=== PATIENT | male | born 1970 | race Caucasian/White ===

== ENCOUNTER 2023-03-02 07:23 | Inpatient (IN) | payer SELFPAY ==
[2023-03-02] VITALS (14 sets, daily range): BP systolic 95–141; BP diastolic 59–97; PULSE 68–85; RESP 16–19; TEMP 36.3–37.4; O2SAT 94–97; BMI 23.9; BMI 24.6
--- NOTE | 2023-03-02 08:05 | CT_ITS ---
STUDY: CT ABDOMEN AND PELVIS WITH CONTRAST REASON FOR EXAM: Male, 52 years old. 3 day history of nausea and vomiting. RADIATION DOSAGE (If Supplied By Facility): CTDIvol = ( 12.55 ) mGy, DLP = ( 633.92 ) mGycm TECHNIQUE: Transaxial images were obtained from the dome of the diaphragm to the symphysis pubis without oral contrast. IV 100mL Isovue-300 was administered. Sagittal and coronal images were reconstructed. Individualized dose optimization techniques were used for this CT. COMPARISON: None. FINDINGS: Mild degree of emphysematous changes at the lung bases. The visualized portions of the heart are within normal limits. Mild degree of fatty infiltration of the liver. Small amount of the perihepatic fluid. Normal gallbladder and extrahepatic biliary system. Normal spleen. Normal pancreas. Normal bilateral adrenal glands. Normal right kidney. Normal left kidney. There is fluid distention of the stomach. Marked degree of abnormality is seen in the distal portion of the stomach and first portion of the duodenum with evidence of heterogeneous wall thickening and edematous changes of the wall. Tiny extraluminal air bubbles are seen in the gastroepiploic ligament as well as in the fat in the prepancreatic region. Mildly dilated proximal small bowel loops with evidence of a edematous changes of the garcia of the proximal small bowel loops suggestive of edema. There are multiple colonic diverticula consistent with diverticulosis. The appendix is visualized and appears normal. Normal abdominal aorta. Normal inferior vena cava. Normal retroperitoneum. Normal urinary bladder. Small amount of free fluid is seen in the pelvis. Normal abdominal wall. There are mild degenerative changes of the visualized lumbar spine. CT/Abdomen/Pelvis W IV Cont ONLY IMPRESSION: Distended fluid-filled stomach with the abnormality of the wall of the distal stomach and a first portion of the duodenum. Small amount of free extraluminal air is seen in the gastroepiploic ligament as well as in the prepancreatic region. Abnormal appearance of the mildly dilated proximal small bowel loops. Perihepatic fluid as well as fluid in the pelvis. Electronically Signed: Emil Nowak MD at 10:08 EDT ,
[2023-03-02 08:55] LABS: ALB/GLOB Ratio 0.8 RATIO (0.9-2.4); AST(SGOT) 10 U/L (15-37); Alanine Aminotransfer ALT/SGPT 20 U/L (16-61); Albumin, Serum 3.7 g/dL (3.2-5.0); Alkaline Phosphatase 78 U/L (45-117); Anion Gap 9 (5-15); BUN 28 mg/dL (7-18); BUN/Creat Ratio 13.5 RATIO (10-20); Calcium,Total 9.9 mg/dL (8.5-10.1); Chloride 90 mmol/L (98-107); Creatinine, Serum 2.08 mg/dL (0.70-1.30); EST Glomerular Filtration Rate 36 mL/min (>60); Est Glom Filt Rate - Afr Amer 44 mL/min (>60); Globulin 4.9 g/dL (2.2-4.2); Glucose 154 mg/dL (74-106); Lipase 10 U/L (13-75); Potassium 3.6 mmol/L (3.5-5.1); Protein, Total 8.6 g/dL (6.4-8.2); Sodium Level 131 mmol/L (136-145)
--- NOTE | 2023-03-02 09:34 | PCM.HP.STD ---
[facility] - [facility] [place] [facility] Date of Service: 03/02/23 Chief Complaint: Severe epigastric pain with associated nausea and vomiting (hematemesis type) HPI Narrative RICHA KOLB, is a 52 M who presents with a 2-day history of severe upper abdominal pain and nausea and vomiting. Patient notes that he had some blood streaking with his vomiting over the last couple days and the pain intensified to the point that he had to seek evaluation last evening. ER work-up is notable for a CBC with white count greater than 20,[address] imaging demonstrates peritoneal free air with free fluid around the dome of the liver and also in the pelvis. Patient confirms a history of acid reflux and heartburn, but denies a history of peptic ulcer disease. He denies any excessive use recently of NSAID medications. He is a lifelong smoker with a maximal consumption of up to 3 packs/day, but states that he is currently at approximately a pack per day consumption. He denies any notable family GI history. He denies any prior abdominal surgical history. Physical Exam Const alert, oriented x3 and no apparent distress Resp normal respiratory effort GI GI Narrative: Nondistended, no scars, tense, guarding present and diffuse tenderness present. Results Lab / Micro Data Result Diagrams: 03/02/23 07:35 Labs: Laboratory Results - last 24 hr 03/02/23 07:35: Sodium 131 L, Potassium 3.6, Chloride 90 L, Carbon Dioxide 32.0, Anion Gap 9, BUN 28 H, Creatinine 2.08 H, Est GFR (MDRD) Af Amer 44 L, Est GFR (MDRD) Non-Af 36 L, BUN/Creatinine Ratio 13.5, Glucose 154 H, Calcium 9.9, Total Bilirubin 1.80 H, AST 10 L, ALT 20, Alkaline Phosphatase 78, Total Protein 8.6 H, Albumin 3.7, Globulin 4.9 H, Albumin/Globulin Ratio 0.8 L, Lipase 10 L Assessment & Plan Assessment/Plan (1) Free intraperitoneal air: (2) Abdominal ascites: (3) Peritonitis: (4) Duodenal ulcer: (5) Mural thickening of small intestine: PLAN: Plan This is a 52-year-old male who presents with a 48-hour history of acute onset severe epigastric abdominal pain with associated nausea and vomiting. He notes that the vomiting also included streaking of blood. Patient states that the pain intensified to the point that he could no longer bear things at home. ER work-up is suggestive of probable perforated peptic ulcer, but there is also changes in the more distal small bowel suggesting inflammation concurrent in that location as well. Patient is peritoneal on exam and I therefore recommend proceeding to the OR emergently to try to obtain source control and drainage of the peritoneal cavity. Operation was discussed with the patient in detail and he accepts this recommendation. Given the more distal inflammatory change, patient may require evaluation for Kiersten-Hardin syndrome. He also was noted to have evidence of acute kidney injury so we will look to consult the hospitalist service for assistance with this issue postoperatively. Neuro: As needed Dilaudid Pulm/CV: Smoking cessation mandated, I-S, close hemodynamic monitoring but no signs of septic shock at this time FEN/GI: Consult hospitalist service for evidence of ANITA, close monitoring of electrolytes and renal function, nasogastric tube requested, proceed to the OR emergently for diagnostic laparoscopy, possible exploratory laparotomy with Bradley patch and drain placement, initiate PPI therapy : Plan to place Guerrero in the operating room Heme/ID: Close monitoring of CBC, begin broad-spectrum empiric antibiotic coverage as well as antifungal coverage Endo: No current issues Proph: SCDs Dispo: To the OR for emergent operation as above
--- NOTE | 2023-03-02 10:06 | EDS_ITS ---
HPI HPI - GI Narrative Narrative: 52-year-old male who denies significant past medical history presents with nausea, vomiting, abdominal pain, and diarrhea for the last 2 days. He states his symptoms began on Monday, 2 days ago. Was more of a gradual onset. In the last 24 hours he states he has vomited at least 20 times with blood streaks in it. He is having epigastric to diffuse abdominal pain, and had an episode of diarrhea yesterday. He denies any previous abdominal surgeries. He used to drink alcohol but quit a few years ago. He also used to smoke marijuana but also quit that a few years ago. He is a current smoker of cigarettes. His main concern is his abdominal pain and the profuse vomiting that he has been having. PFSH PFSH Allergy/AdvReac Type Severity Reaction Status Date / Time No Known Allergies Allergy Verified 03/02/23 10:18 ROS ROS ED ROS Narrative Constitutional: No fever, no chills. HEENT: No sore throat. No neck pain. No loss of vision. No rhinorrhea. Cardiovascular: No chest pain. No palpitations. No pedal edema. Respiratory: No cough, no shortness of breath. Abdominal: Epigastric to diffuse, radiating to sides abdominal pain. Positive nausea, multiple episodes of blood-streaked vomiting in the last 24 hours. Diarrhea yesterday. Genitourinary: No dysuria. No hematuria. Musculoskeletal: No myalgias. No arthralgias. Neurologic: No headaches. No dizziness. No lightheadedness. Skin: No rash. No change in color. Psychiatric: No depression. No anxiety. EXAM Physical Exam Narrative Exam Narrative: Afebrile. Vital signs noted. HEENT: Normocephalic. Atraumatic. PERRL, EOMI. Neck soft and supple. No point tenderness or step off. Cardiovascular: Regular rate and rhythm. No murmurs, rubs, or gallops appreciated. Respiratory: No tachypnea. Lungs clear to auscultation bilaterally. Gastrointestinal: Abdomen diffusely tender with decreased to normoactive bowel sounds. Positive peritoneal signs with guarding. Neurological: Awake. Alert. Nonfocal, nonlateralizing. Skin: No rash. Normal color. No pallor. Musculoskeletal: No pedal edema. Full range of motion extremities. MDM MDM MDM Narrative Medical decision making narrative: Concern is for pancreatitis versus bowel obstruction versus colitis. Comprehensive work-up was pursued. He was administered morphine and ondansetron with a bolus of normal saline. I reviewed the patient's laboratory work, he has a leukocytosis of 27,000. Review of his electrolyte panel shows sodium low at 131, but normal potassium of 3.6, glucose elevated at 154 with a normal anion gap of 9. He does have a creatinine elevated at 2.08. Lipase low at 10. He was initially seen during downtime so comparison laboratories was difficult to review. I received a call from the radiologist who states that he may have free air in the abdomen from suspected perforated ulcer in the duodenum, and he has mural thickening of the small intestines distally. I discussed patient with Dr. Ling with general surgery who has evaluated the patient in the emergency department and who would like patient started on broad-spectrum antibiotics in the form of Zosyn and vancomycin. He would also like Diflucan, NG tube inserted, and Protonix 80 mg intravenously prior to taking him to the OR emergently. Disposition is admit in stable condition. History & Record Review Discussion w/independent historian: Patient Additional record(s) reviewed:: No prior records Lab Data Attestation: I reviewed the patient's lab results. Labs: Laboratory Results - last 24 hr 03/02/23 03/02/23 03/02/23 07:35 07:35 07:35 WBC 27.4 H RBC 5.37 Hgb 15.8 Hct 48.4 MCV 90.1 MCH 29.4 MCHC 32.6 RDW Std Deviation 44.2 H RDW Coeff of Hector 13.7 Plt Count 324 MPV 11.9 Immature Gran % (Auto) 1.400 H Neut % (Auto) 92.7 H Lymph % (Auto) 2.9 L [place] % (Auto) 2.6 Eos % (Auto) 0.0 Baso % (Auto) 0.4 Absolute Neuts (auto) 25.4 H Absolute Lymphs (auto) 0.78 L Differential Comment COMMENT Sodium 131 L Potassium 3.6 Chloride 90 L Carbon Dioxide 32.0 Anion Gap 9 BUN 28 H Creatinine 2.08 H Est GFR (MDRD) Af Amer 44 L Est GFR (MDRD) Non-Af 36 L BUN/Creatinine Ratio 13.5 Glucose 154 H Calcium 9.9 Phosphorus 4.2 Magnesium 1.7 Total Bilirubin 1.80 H AST 10 L ALT 20 Alkaline Phosphatase 78 Total Protein 8.6 H Albumin 3.7 Globulin 4.9 H Albumin/Globulin Ratio 0.8 L Lipase 10 L Radiography Diagnostic Testing: Clinical Impression(s) from Imaging Studies Abdomen/Pelvis CT 03/02/23 08:05 IMPRESSION: Distended fluid-filled stomach with the abnormality of the wall of the distal stomach and a first portion of the duodenum. Small amount of free extraluminal air is seen in the gastroepiploic ligament as well as in the prepancreatic region. Abnormal appearance of the mildly dilated proximal small bowel loops. Perihepatic fluid as well as fluid in the pelvis. Electronically Signed: Emil Nowak MD at 10:08 EDT , Management Discussion w/another healthcare provider: Oceanographer Physical (Dr. Ling) Critical Care Time Critical Care Time: Yes Critical care time (excluding procedures): 30-74 minutes (24), Including time spent:, Discussing w/Patient &/or Family/Outsole Rounder, Discussing w/Consultants (Dr. Ling, surgery), Arranging Admission or Transfer and Performing Direct Patient Care at Bedside Discharge Plan Triage ED Provider: Joe Khan Dx/Rx/DC Orders Primary Care Provider: Care Physician,No Primary
[2023-03-02 10:12] LABS: White Blood Count 27.4 K/mm3 (4.4-11.0)
--- NOTE | 2023-03-02 10:12 | EKG12_ITS ---
Test Reason : PRE OP Blood Pressure : / mmHG Vent. Rate : 079 BPM Atrial Rate : 079 BPM P-R Int : 128 ms QRS Dur : 086 ms QT Int : 356 ms P-R-T Axes : 068 -22 054 degrees QTc Int : 408 ms Normal sinus rhythm Normal ECG No previous ECGs available Confirmed by NEELIMA BUCK, JANELL ([id number]), medical transcription editor LINDA KHALIL ([id number]) on 03/07/2023 10:48:57 AM Referred By: Joe Khan Confirmed By:JANELL ORTEZ MD
[2023-03-02 10:13] LABS: Basophil% 0.4 % (0-1); Hematocrit 48.4 % (40-54); Hemoglobin 15.8 g/dL (13.0-16.5); Lymphocyte % 2.9 % (19-41); Mean Corp Hgb Conc 32.6 g/dL (32-36); Mean Corpuscular Hgb 29.4 pg (27.0-32.0); Mean Corpuscular Volume 90.1 fL (80-94); Mean Platelet Vol. 11.9 fl (6.2-12.0); Monocyte% 2.6 % (0-10); Neutrophil % 92.7 % (47-70); Platelet Count 324 K/mm3 (150-450); RBC Distribution Width CV 13.7 % (11.6-14.6); RBC Distribution Width SD 44.2 fl (35.1-43.9); Red Blood Count 5.37 M/mm3 (4.6-6.2)
[2023-03-02 10:14] LABS: Absolute Lymphocyte Count 0.78 X10^3/uL (0.83-4.51); Absolute Neutrophil Count 25.4 X10^3/uL (2.0-7.7); Basophil# 0.11 X10^3/uL; Differential Indicated SCAN CRITERIA MET; Lymphocyte # 0.78 X10^3/ul (0.83-4.51); Monocyte# 0.72 X10^3/uL
--- NOTE | 2023-03-02 10:25 | PCM.CONS.GEN ---
Assessment & Plan Assessment/Plan (1) Peritonitis: (2) Duodenal ulcer: (3) ANITA (acute kidney injury): PLAN: Plan This is 52-year-old gentleman who is being admitted and general surgery after found to have hollow viscus perforation. 1. Perioperative management of perforated peptic ulcer with generalized peritonitis: Patient is being admitted on [facility] floor. Patient had diagnostic laparoscopy with Bradley patch. Operative findings shows gross contamination of peritoneum with turbid fluid and fibrinous debris particularly around the region of lesser curve. No active leaking of succus. Dense inflammatory hydrant omentum over first part of duodenum suggestive of sealed perforation. Patient is on IV fluid Ringer lactate. NG tube suction, pain control, DVT prophylaxis as per surgeon. Patient has leukocytosis with mainly immature granulocytes 1 neutrophil 92% lymphocyte 2.9%. 2. Kidney dysfunction most likely ANITA, prerenal from hypovolemia: Labs reviewed. BUN 28/2.08, BUN/creatinine ratio 13.5. Mild hyponatremia and hypokalemia 131 and 90. K3.6. Bicarb 32 suggestive of volume contraction metabolic alkalosis. IV fluid Ringer lactate ordered. Monitor kidney function, intake and output and electrolytes. If kidney dysfunction does not improve will need renal ultrasound. UA with urine culture is ordered. Patient denies acute dysuria or change in lower urinary tract symptoms. 3. Mild aspiration during intubation: Chest x-ray mutilative reviewed and does not show any acute infiltrate or consolidation. NG tube in the stomach. Patient is on IV Zosyn and will continue it. We can discontinue vancomycin 4. Chronic smoker: Patient has chronic smoker's cough but has not changed in severity or characteristics. Nicotine ordered. He has already quit alcohol and substance use. DVT prophylaxis, moderate risk: Lovenox 40 mg subcu daily when hemostasis is controlled as per surgeon. Discontinue if platelet count drops less than 50,000 or hemoglobin less than 8 g% HPI Consult Data Date of Consult: 03/02/23 HPI Narrative Reason for Consultation: Perioperative management of hollow viscus perforation and ANITA HPI Narrative: RICHA KOLB, is a 52 M who who is being admitted in surgical service after he came to ER with nausea, vomiting abdominal pain and diarrhea for last 2 days. I saw the patient in PACU after surgery patient is mildly groggy. Abdominal pain started in epigastric with gradual onset with mild severity and then become generalized and diffuse and progressed in severity 10 out of 10 in last 24 hours. He also had severe vomiting about 20 times with some bloody streaks. Patient also had loose bowel movement day before admission. Patient has not seen any primary care doctor or any doctor in the past. Not on any medications. He states he does not have any prior medical history and therefore has not seen any doctor. This is the first time he came to the hospital. In ED, he had CT abdomen which shows small amount of free extraluminal air in and gastroepiploic and peripancreatic region. Stomach distended with thickened wall on distal stomach and D1. Mildly dilated proximal small bowel loops. Perihepatic and fluid in pelvis. Patient was taken to the OR for diagnosis of hollow viscus perforation most likely duodenal perforation.Had diagnostic laparoscopy with Bradley's patch. Past medical history: Patient is states he does not have any medical history. Denies chronic heart disease lung disease or stroke. Denies any prior surgery. Social history: Patient used to drink 1 case of beer every day since teenage but he quit 8 years ago. He smokes a pack per day started in his 30s. Patient had substance use crack cocaine in his younger years but has quit long time ago. Family history: His father and brothers also has chronic alcohol use disorder and heavy drinking. Vitals in OR 99.4.Blood pressure in normal range. No hypoxia or tachypnea Labs, x-ray and CT further discussion assessment plan Patient further admitted after surgery. [facility] Allergy/AdvReac Type Severity Reaction Status Date / Time No Known Allergies Allergy Verified 03/02/23 10:18 ROS ROS Narrative Constitutional: Reports fatigue and weakness. No fever. HEENT: Reports systems reviewed and no addt'l complaints, except as documented Respiratory/Chest: Denies chest pain, shortness of breath at rest or with exertion CVS: No [place] or heart failure. No syncope. Gastrointestinal: As described in HPI Genitourinary: Denies burning urination or new urinary tract symptoms Musculoskeletal: Denies joint pain and limited range of motion Neurologic: Denies seizure-like activity. Denies a stroke skin: No ulcer. No rash Endocrinology: Reports systems reviewed and no addt'l complaints, except as documented Hematologic/Lymphatic: Reports systems reviewed and no addt'l complaints, except as documented Rest 14 ROS are negative except as mentioned in HPI Physical Exam Narrative General: Awake, mild groggy. Oriented x3. Cooperative. HEENT: Atraumatic, PERRLA, EOMI, Normocephalic Oral: NG tube. Gastric bilious aspiration. Oral mucosa dry. Neck: Supple, No JVD, Negative Carotid Bruits Lungs: Air entry diminished in bilateral lung bases. No crepitation/rhonchi. No hypoxia or tachypnea. Cardiovascular: Sinus regular rhythm, Normal S1, Normal S2, No murmurs Abdomen: Postsurgery. Dressing is dry. Postoperative tenderness and guarding. Bowel sounds absent. : Has Guerrero catheter. 200 mL emptied in OR and 300 mL [place] dark yellow color. No dysuria. No renal angle tenderness. No suprapubic tenderness. Extremities: No edema, Capillary Refill Less than 3 Seconds Skin: No rashes, No breakdown Musculoskeletal: No Tenderness to Palpation of Joints or Extremities. Range of motion intact. Muscle strength did not check because of surgery Neurological: Cranial nerves II-XII grossly intact, DTR 2+/4 and Symmetrical, Neuro grossly intact Psych/Mental Status: Flat affect. Lab / Micro Data Result Diagrams: 03/02/23 07:35 03/02/23 07:35 Labs: Laboratory Results - last 24 hr 03/02/23 07:35: Sodium 131 L, Potassium 3.6, Chloride 90 L, Carbon Dioxide 32.0, Anion Gap 9, BUN 28 H, Creatinine 2.08 H, Est GFR (MDRD) Af Amer 44 L, Est GFR (MDRD) Non-Af 36 L, BUN/Creatinine Ratio 13.5, Glucose 154 H, Calcium 9.9, Total Bilirubin 1.80 H, AST 10 L, ALT 20, Alkaline Phosphatase 78, Total Protein 8.6 H, Albumin 3.7, Globulin 4.9 H, Albumin/Globulin Ratio 0.8 L, Lipase 10 L 03/02/23 07:35: WBC 27.4 H, RBC 5.37, Hgb 15.8, Hct 48.4, MCV 90.1, MCH 29.4, MCHC 32.6, RDW Std Deviation 44.2 H, RDW Coeff of Hector 13.7, Plt Count 324, MPV 11.9, Immature Gran % (Auto) 1.400 H, Neut % (Auto) 92.7 H, Lymph % (Auto) 2.9 L, [place] % (Auto) 2.6, Eos % (Auto) 0.0, Baso % (Auto) 0.4, Absolute Neuts (auto) 25.4 H, Absolute Lymphs (auto) 0.78 L, Differential Comment COMMENT Radiology Impression Abdomen/Pelvis CT 03/02/23 08:05 IMPRESSION: Distended fluid-filled stomach with the abnormality of the wall of the distal stomach and a first portion of the duodenum. Small amount of free extraluminal air is seen in the gastroepiploic ligament as well as in the prepancreatic region. Abnormal appearance of the mildly dilated proximal small bowel loops. Perihepatic fluid as well as fluid in the pelvis. Electronically Signed: Emil oNwak MD at 10:08 EDT ,
[2023-03-02 10:59] LABS: Magnesium 1.7 mg/dL (1.6-2.6); Phosphorus 4.2 mg/dL (2.5-4.9)
[2023-03-02] MEDS: Bupivacaine 0.25% 30 ML Vial OPERA.SITE (12:56)
--- NOTE | 2023-03-02 13:03 | OP.PCM_ITS ---
Report of Operation Date of Procedure: 03/02/23 Pre-Operative Diagnosis: Perforated peptic ulcer Post-Operative Diagnosis: Same Surgery/Procedure Performed:: Diagnostic laparoscopy with Bradley patch Description of Surgical Findings:: ? Gross contamination of the peritoneum with turbid fluid and fibrinous debris particularly around the region of the lesser curve ? No activeleaking of succus ? Dense inflammatory/adherent omentum over the first portion of the duodenum adjacent to the infundibulum of the gallbladder Surgeon: Milton Ling network support administrator: Jodi Maria Type of Anesthesia: General/Supplemental Anesthesiologist: Willis Massey Specimen's removed: none Drains: 2x15 [place] round Sunny drains Estimated Blood Loss (mL): 20 Description of Procedure: After appropriate identification in the preoperative holding area the patient was brought to the operating room was positioned supine on the operating room table. There he underwent induction of general endotracheal anesthetic with rapid sequence intubation. During intubation, unfortunately, patient was noted to have an aspiration event. The endotracheal tube was suctioned to remove as much of this contamination from the bronchus as possible. Patient then had a nasogastric tube placed by anesthesia with return of greater than 1100 mL of dark brown output. A Guerrero catheter was placed for accurate ins and outs monitoring as patient presented with evidence of acute kidney injury to the ER. Patient's abdomen was then prepped and draped in usual sterile fashion and formal timeout was conducted to confirm patient and procedure. Preprocedure antibiotics/antifungals/PPI that I had requested from emergency medicine were sequentially administered by anesthesia at this time. Procedure was then begun with a Sandoval entry in the supraumbilical position. After sharply making a 15 mm longitudinal incision the campers layer was bluntly spread and the abdominal fascia was incised along with the peritoneum. A finger sweep was performed to ensure peritoneal entry and confirmed there were no lingering adhesions. Then a 15 mm balloon Sandoval trocar was placed. Pneumoperitoneum was established to 12 mmHg pressure. Laparoscopic investigation revealed no inadvertent injury from this entry and two 5 mm trocars were placed on either side of this index port at approximately handsbreath laterally from this index port under direct laparoscopic visualization after performing a block with local anesthetic of the sites. Laparoscopic investigation of the peritoneum revealed turbid fluid with fibrinous exudate overlying the area of segment 4 of the liver as well as the falciform. There appeared to be some contamination along the gastrohepatic ligament in the area of the pars flaccida and there was dense adherence of the overlying fatty tissue to the pyloric and postpyloric portions of the stomach/duodenum, respectively. There was also evidence of turbid fluid within the pelvis. Given this appearance, it appeared that our suspicion for a perfora lucas peptic ulcer was correct and I therefore placed the patient in reverse Trendelenburg position. Because the patient had a large left lobe of the liver, I also placed a Medhat retractor under laparoscopic visualization to retract this portion of the liver to improve visualization of the anterior stomach. I then used the laparoscopic LigaSure device to incise the gastrohepatic ligament in the area of pars flaccida and systematically began exploring the lesser curvature of the stomach. No jaden perforations of the stomach were identified. I extended this exploration along the anterior aspect of the duodenum and still did not uncover any perforations. Admittedly, I did leave a area of densely adherent fatty tissue in the pyloric channel portion of the patient's anatomy intact as I was concerned this may represent an area of auto patching. To try to gently provoke the area of perforation and demonstrate its location, I requested anesthesia gently insufflate the stomach while we submerged the lesser curve of the stomach and the duodenum beneath sterile saline. This resulted in distention of the stomach but I did not see either bubbling or leaking succus with this maneuver. Finding this to be a negative result, I asked anesthesia to remove the insufflation of the stomach and guided their further positioning of the NG tube under laparoscopic visualization. I then undertook Bradley patching of an area of possible concern in the prepyloric region of the stomach as a means of trying to bolster the potential autografting in that location. To do so the laparoscopic needle drivers were used to place 2 interrupted 2-0 silk sutures across this area and then the previously pedicled gastrohepatic fat was snugly tied over this area using intracorporeal suture tying. 15 Canadian round Sunny drains were placed in the vicinity of this Bradley patch underneath the left lobe of the liver and along the right paracolic gutter/Morison's pouch. These drains were secured at the skin using 2-0 nylon suture. Pneumoperitoneum was then evacuated and the fascia of the 12 mm supraumbilical port site was closed with 0 Vicryl in a [id number] fashion. 4-0 Monocryl was used to cl ose the skin of both this port site as well as the liver retractor port site. Steri-Strips and dressings were applied. Patient was then awoken from anesthetic, extubated, and transferred (with his Guerrero catheter still intact) to PACU for ongoing recovery. Grafts/Implants Used: none Complications None Admit VTE Documentation VTE Mechan Device Prophylaxis: SCD's
--- NOTE | 2023-03-02 13:45 | RAD_ITS ---
INDICATION: aspiation EXAMINATION/TECHNIQUE: X-RAY - XR Chest 1 View COMPARISON: None. FINDINGS: Streaky/patchy opacities in the left lung base. The cardiomediastinal silhouette is unremarkable. NG tube is in place with tip in the stomach. No pleural effusion or pneumothorax. No acute osseous abnormalities. RAD/Chest 1 View (Portable) IMPRESSION: Streaky/patchy opacities in the left lung base could represent atelectasis versus infection.. Electronically Signed: Cecil Alvarado MD at 17:19 EDT ,
[2023-03-02] MEDS: Lactated Ringers 1,000 ML 125 ML IV (14:12)
--- NOTE | 2023-03-02 14:39 | DIALYSIS ---
4 hours Hd completed. Uf 4000 ml. fluid removal limited by low Bp, SBP 90's majority of treatment. CVC WNL. Vascular PA in and plan for AVF use tomorrow. see dialysis record
[2023-03-02] MEDS: 0.9% Normal Saline 1,000 ML 125 ML IV (17:10)
[2023-03-03 02:06] VITALS: BP 108/57; PULSE 78; RESP 20; TEMP 36.4; O2SAT 97
[2023-03-03] MEDS: 0.9% Normal Saline 1,000 ML 125 ML IV (04:01)
[2023-03-03 04:10] VITALS: BP 130/89; PULSE 84; RESP 20; TEMP 36.4; O2SAT 98
[2023-03-03] MEDS: HYDROmorphone 0.5 MG/0.5 ML SYRINGE IV ×4 (04:12→19:05)
[2023-03-03] MEDS: 0.9% Saline Lock 10 ML Syringe IV ×2 (04:14→13:53)
--- NOTE | 2023-03-03 04:33 | NURSING ---
Patient ambulated one lap around unit, SBA. Tolerated well.
[2023-03-03 06:41] LABS: Absolute Lymphocyte Count 0.98 X10^3/uL (0.83-4.51); Absolute Neutrophil Count 19.9 X10^3/uL (2.0-7.7); Basophil# 0.03 X10^3/uL; Basophil% 0.1 % (0-1); Hemoglobin 11.3 g/dL (13.0-16.5); Lymphocyte # 0.98 X10^3/ul (0.83-4.51); Lymphocyte % 4.5 % (19-41); Mean Corp Hgb Conc 33.2 g/dL (32-36); Mean Corpuscular Hgb 29.6 pg (27.0-32.0); Mean Platelet Vol. 12.1 fl (6.2-12.0); Monocyte# 0.88 X10^3/uL; NRBC Flagged by Analyzer 0 % (0-5); Neutrophil % 90.4 % (47-70); Platelet Count 211 K/mm3 (150-450); RBC Distribution Width CV 14.4 % (11.6-14.6); RBC Distribution Width SD 46.5 fl (35.1-43.9); Red Blood Count 3.82 M/mm3 (4.6-6.2)
[2023-03-03 07:07] LABS: Anion Gap 1 (5-15); BUN 21 mg/dL (7-18); BUN/Creat Ratio 19.4 RATIO (10-20); Calcium,Total 8.1 mg/dL (8.5-10.1); Chloride 103 mmol/L (98-107); Creatinine, Serum 1.08 mg/dL (0.70-1.30); EST Glomerular Filtration Rate 76 mL/min (>60); Est Glom Filt Rate - Afr Amer 92 mL/min (>60); Estimated Creatinine Clearance 78.19 ml/min; Glucose 105 mg/dL (74-106); Potassium 4.2 mmol/L (3.5-5.1); Sodium Level 133 mmol/L (136-145)
--- NOTE | 2023-03-03 08:25 | PN.SURG_ITS ---
Subjective Subjective Patient seen and examined during AM rounds. He complains of some moderate right-sided discomfort that is particularly bothersome when coughing. He confirms this discomfort seems to be at the surface of his abdomen right about his right-sided drain site. He remarks of some mild nausea as well but otherwise appears stable. Objective Data Objective Data Vital Signs: Vital Signs Temp Pulse Resp BP Pulse Ox O2 Del Method O2 Flow Rate 97.5 F L 84 20 H 130/89 H 98 Room Air 2 03/03/23 04:10 03/03/23 04:10 03/03/23 04:10 03/03/23 04:10 03/03/23 04:10 03/03/23 04:10 03/02/23 13:30 Oxygen Flow Rate (L/min) 2 Oxygen Delivery Method Room Air Weight: 167 lb Body Mass Index (BMI) 24.6 Intake & Output: Intake and Output for Last 24 Hours 03/01/23 03/02/23 03/03/23 23:59 23:59 23:59 Intake Total 3965 / 3985 1130 / 1130 Output Total 1440 / 2255 1115 / 1115 Balance 2525 / 1730 Lab / Micro Data Result Diagrams: 03/03/23 05:20 03/03/23 05:20 Labs: Laboratory Results - last 24 hr 03/02/23 07:35: Sodium 131 L, Potassium 3.6, Chloride 90 L, Carbon Dioxide 32.0, Anion Gap 9, BUN 28 H, Creatinine 2.08 H, Est GFR (MDRD) Af Amer 44 L, Est GFR (MDRD) Non-Af 36 L, BUN/Creatinine Ratio 13.5, Glucose 154 H, Calcium 9.9, Total Bilirubin 1.80 H, AST 10 L, ALT 20, Alkaline Phosphatase 78, Total Protein 8.6 H , Albumin 3.7, Globulin 4.9 H, Albumin/Globulin Ratio 0.8 L, Lipase 10 L 03/02/23 07:35: WBC 27.4 H, RBC 5.37, Hgb 15.8, Hct 48.4, MCV 90.1, MCH 29.4, MCHC 32.6, RDW Std Deviation 44.2 H, RDW Coeff of Hector 13.7, Plt Count 324, MPV 11.9, Immature Gran % (Auto) 1.400 H, Neut % (Auto) 92.7 H, Lymph % (Auto) 2.9 L , [place] % (Auto) 2.6, Eos % (Auto) 0.0, Baso % (Auto) 0.4, Absolute Neuts (auto) 25.4 H, Absolute Lymphs (auto) 0.78 L, Differential Comment COMMENT 03/02/23 07:35: Phosphorus 4.2, Magnesium 1.7 03/03/23 05:20: WBC 22.0 H, RBC 3.82 L, Hgb 11.3 L, Hct 34.0 L, MCV 89.0, MCH 29.6, MCHC 33.2, RDW Std Deviation 46.5 H, RDW Coeff of Hector 14.4, Plt Count 211, MPV 12.1 H, Immature Gran % (Auto) 1.000 H, Neut % (Auto) 90.4 H, Lymph % (Auto) 4.5 L, [place] % (Auto) 4.0, Eos % (Auto) 0.0, Baso % (Auto) 0.1, Absolute Neuts (auto) 19.9 H, Absolute Lymphs (auto) 0.98, Nucleated RBC % 0 03/03/23 05:20: Sodium 133 L, Potassium 4.2, Chloride 103, Carbon Dioxide 29.0, Anion Gap 1 L, BUN 21 H, Creatinine 1.08, Estim Creat Clear Calc 78.19, Est GFR (MDRD) Af Amer 92, Est GFR (MDRD) Non-Af 76, BUN/Creatinine Ratio 19.4, Glucose 105, Calcium 8.1 L, Phosphorus 3.0, Magnesium 2.0 Radiography Diagnostic Testing: Radiology Impression Abdomen/Pelvis CT 03/02/23 08:05 IMPRESSION: Distended fluid-filled stomach with the abnormality of the wall of the distal stomach and a first portion of the duodenum. Small amount of free extraluminal air is seen in the gastroepiploic ligament as well as in the prepancreatic region. Abnormal appearance of the mildly dilated proximal small bowel loops. Perihepatic fluid as well as fluid in the pelvis. Electronically Signed: Emil Nowak MD at 10:08 EDT , Chest X-Ray 03/02/23 13:45 IMPRESSION: Streaky/patchy opacities in the left lung base could represent atelectasis versus infection.. Electronically Signed: Cecil Alvarado MD at 17:19 EDT , Physical Exam Const oriented x3 Constitutional Narrative: Mild distress from right-sided discomfort Resp Resp Narrative: Mildly tachypneic but on room air GI GI Narrative: Mild to moderately distended. Tenderness to palpation of the right-sided abdominal quadrants, patient insists this is superficial. Drain sites are appropriate bilaterally with serosanguineous output. Dressings to patient's port sites are clean dry and intact. Bladder / Kidney Exam: catheter in place urethral (Draining clear light yellow urine) Assessment & Plan Assessment/Plan (1) Perforated peptic ulcer: PLAN: Patient is hospital day 2, postoperative day 1 from diagnostic laparoscopy with Bradley patch and drain placement yesterday. He reports overall feeling much better from his ER presentation yesterday. He is still experiencing some pain?primarily in his right upper quadrant about his drain site. He notes this pain is particularly bothersome with coughing. Overall his exam is reassuring and as anticipated. He denies any bowel function and remarks of some mild nausea. I suspect that this is manifestations of an ileus secondary to his peritoneal contamination. He requests to know whether it is possible to get his Guerrero out today which I would like to do, but have left it in place on the account of some diuresis I would like to achieve this morning. Neuro: As needed Dilaudid, hold off any NSAIDs on the account of patient's ulcer, hold off p.o. medications on account of ulcer Pulm/CV: Incentive spirometry, close monitoring given patient's risk factors for respiratory complication to include prior smoking history, probable aspiration event at OR yesterday, and volume repletion. We will look to perform gentle diuresis today on the account of volume administered yesterday FEN/GI: Daily electrolytes, patient's creatinine is normalized today, today these electrolytes appear within reasonable range, strict n.p.o. with NG tube to low intermittent wall suction, Protonix 80 mg twice daily, hold off nicotine patch to try to promote perfusion to gastric mucosa and promote healing : Plan to discontinue Guerrero after furosemide effect is complete today Heme/ID: Daily monitoring of CBC, there is an expected downtrend in patient's hemoglobin probably in response to hemodilution primarily, WBC is downtrending in response to empiric therapy with Zosyn, vancomycin, and Diflucan Endo: No current issues, monitor glucose Proph: SCDs, mobilize as tolerated Dispo: Continue inpatient care Charges/Coding Visit Charges Inpatient E&M: 34094 Subs Hosp L2
[2023-03-03 08:40] VITALS: BP 105/71; PULSE 83; RESP 18; TEMP 37; O2SAT 96
--- NOTE | 2023-03-03 09:04 | PCM.PN.HOSP ---
Reason for Visit Reason for Visit: Diagnoses Duodenal ulcer, unspecified as acute or chronic, without hemorrhage or perforation (03/02/23) Disease of intestine, unspecified (03/02/23) Peritonitis, unspecified (03/02/23) Other specified disorders of peritoneum (03/02/23) Acute kidney failure, unspecified (03/02/23) Other ascites (03/02/23) Subjective Subjective Follow-up for perioperative management of duodenal ulcer perforation. Objective Data Objective Data Vital Signs: Vital Signs Temp Pulse Resp BP Pulse Ox O2 Del Method O2 Flow Rate 97.5 F L 84 20 H 130/89 H 98 Room Air 2 03/03/23 04:10 03/03/23 04:10 03/03/23 04:10 03/03/23 04:10 03/03/23 04:10 03/03/23 04:10 03/02/23 13:30 Oxygen Flow Rate (L/min) 2 Oxygen Delivery Method Room Air Weight: 167 lb Body Mass Index (BMI) 24.6 Intake & Output: Intake and Output for Last 24 Hours 03/01/23 03/02/23 03/03/23 23:59 23:59 23:59 Intake Total 3965 / 3985 1130 / 1130 Output Total 1440 / 2255 1115 / 1115 Balance 2525 / 1730 Lab / Micro Data Result Diagrams: 03/03/23 05:20 03/03/23 05:20 Labs: Laboratory Results - last 24 hr 03/02/23 07:35: Sodium 131 L, Potassium 3.6, Chloride 90 L, Carbon Dioxide 32.0, Anion Gap 9, BUN 28 H, Creatinine 2.08 H, Est GFR (MDRD) Af Amer 44 L, Est GFR (MDRD) Non-Af 36 L, BUN/Creatinine Ratio 13.5, Glucose 154 H, Calcium 9.9, Total Bilirubin 1.80 H, AST 10 L, ALT 20, Alkaline Phosphatase 78, Total Protein 8.6 H, Albumin 3.7, Globulin 4.9 H, Albumin/Globulin Ratio 0.8 L, Lipase 10 L 03/02/23 07:35: WBC 27.4 H, RBC 5.37, Hgb 15.8, Hct 48.4, MCV 90.1, MCH 29.4, MCHC 32.6, RDW Std Deviation 44.2 H, RDW Coeff of Hector 13.7, Plt Count 324, MPV 11.9, Immature Gran % (Auto) 1.400 H, Neut % (Auto) 92.7 H, Lymph % (Auto) 2.9 L, [place] % (Auto) 2.6, Eos % (Auto) 0.0, Baso % (Auto) 0.4, Absolute Neuts (auto) 25.4 H, Absolute Lymphs (auto) 0.78 L, Differential Comment COMMENT 03/02/23 07:35: Phosphorus 4.2, Magnesium 1.7 03/03/23 05:20: WBC 22.0 H, RBC 3.82 L, Hgb 11.3 L, Hct 34.0 L, MCV 89.0, MCH 29.6, MCHC 33.2, RDW Std Deviation 46.5 H, RDW Coeff of Hector 14.4, Plt Count 211, MPV 12.1 H, Immature Gran % (Auto) 1.000 H, Neut % (Auto) 90.4 H, Lymph % (Auto) 4.5 L, [place] % (Auto) 4.0, Eos % (Auto) 0.0, Baso % (Auto) 0.1, Absolute Neuts (auto) 19.9 H, Absolute Lymphs (auto) 0.98, Nucleated RBC % 0 03/03/23 05:20: Sodium 133 L, Potassium 4.2, Chloride 103, Carbon Dioxide 29.0, Anion Gap 1 L, BUN 21 H, Creatinine 1.08, Estim Creat Clear Calc 78.19, Est GFR (MDRD) Af Amer 92, Est GFR (MDRD) Non-Af 76, BUN/Creatinine Ratio 19.4, Glucose 105, Calcium 8.1 L, Phosphorus 3.0, Magnesium 2.0 Radiography Diagnostic Testing: Radiology Impression Abdomen/Pelvis CT 03/02/23 08:05 IMPRESSION: Distended fluid-filled stomach with the abnormality of the wall of the distal stomach and a first portion of the duodenum. Small amount of free extraluminal air is seen in the gastroepiploic ligament as well as in the prepancreatic region. Abnormal appearance of the mildly dilated proximal small bowel loops. Perihepatic fluid as well as fluid in the pelvis. Electronically Signed: Emil Nowak MD at 10:08 EDT , Chest X-Ray 03/02/23 13:45 IMPRESSION: Streaky/patchy opacities in the left lung base could represent atelectasis versus infection.. Electronically Signed: Cecil Alvarado MD at 17:19 EDT , Physical Exam Narrative Patient was mildly tachypneic 20/min but denies shortness of breath. Has chronic smoker's cough. +2.5 L of fluid. Lasix 20 mg IV given. General: Awake, alert, oriented x3. Cooperative. HEENT: Atraumatic, PERRLA, EOMI, Normocephalic Oral: NG tube Gastric bilious aspiration. Oral mucosa dry. Neck: Supple, No JVD, Negative Carotid Bruits Lungs: Air entry diminished in bilateral lung bases. Mild bibasilar coarse crepitation on deep breathing and coughing. No hypoxia Cardiovascular: Sinus regular rhythm, Normal S1, Normal S2, No murmurs Abdomen: Soft, 2 MARIZOL drains. Serosanguineous drain output. Dressing is dry. Postoperative tenderness and guarding. Bowel sounds absent. : Guerrero catheter. About 300 mL. No dysuria. No renal angle tenderness. No suprapubic tenderness. Extremities: No edema, Capillary Refill Less than 3 Seconds Skin: No rashes, No breakdown Musculoskeletal: No Tenderness to Palpation of Joints or Extremities. Range of motion intact. Muscle strength did not check because of surgery Neurological: Cranial nerves II-XII grossly intact, DTR 2+/4 and Symmetrical, Neuro grossly intact Psych/Mental Status: Flat affect. Assessment & Plan Assessment/Plan (1) Peritonitis: (2) Duodenal ulcer: (3) ANITA (acute kidney injury): PLAN: Plan This is 52-year-old gentleman who is being admitted and general surgery after found to have hollow viscus perforation. 1. Perioperative management of perforated peptic ulcer with generalized peritonitis: Patient is being admitted on [facility] floor. Patient had diagnostic laparoscopy with Bradley patch. Operative findings shows gross contamination of peritoneum with turbid fluid and fibrinous debris particularly around the region of lesser curve. No active leaking of succus. Dense inflammatory hydrant omentum over first part of duodenum suggestive of sealed perforation. Patient is on IV fluid Ringer lactate. NG tube suction, pain control, DVT prophylaxis as per surgeon. Patient has leukocytosis with mainly immature granulocytes 1 neutrophil 92% lymphocyte 2.9%. 03/03: Discussed with the surgeon, Dr. Ling. Leukocytosis improved. Neutrophilia. Total urine output about 1000 mL. NG tube total 210 mL, gastro bilious nature. MARIZOL drain about 10 to 20 mL each. IV fluid changed to D5 NS +20 mEq KCl for nutrition and hydration. Total positive net fluid balance 2.5 L. 20 mg IV Lasix was given. Monitor intake and output. Nicotine patch was discontinued in anticipation recoiling. On IV Protonix 80 mg every 12 hourly, IV Zosyn and fluconazole. Patient was educated and encouraged for incentive spirometry and Pep every 1-2 hours 2. Kidney dysfunction most likely ANITA, prerenal from hypovolemia: Labs reviewed. BUN 28/2.08, BUN/creatinine ratio 13.5. Mild hyponatremia and hypokalemia 131 and 90. K3.6. Bicarb 32 suggestive of volume contraction metabolic alkalosis. IV fluid Ringer lactate ordered. Monitor kidney function, intake and output and electrolytes. If kidney dysfunction does not improve will need renal ultrasound. UA with urine culture is ordered. Patient denies acute dysuria or change in lower urinary tract symptoms. 03/04: Hyponatremia improving. Sodium 133. BUNs/creatinine improved. Creatinine 1.08, ANITA resolved. Continue IV fluid as mentioned above. 3. Mild aspiration during intubation: Chest x-ray mutilative reviewed and does not show any acute infiltrate or consolidation. NG tube in the stomach. Patient is on IV Zosyn and will continue it. We can discontinue vancomycin 4. Chronic smoker: Patient has chronic smoker's cough but has not changed in severity or characteristics. Nicotine ordered. He has already quit alcohol and substance use. 03/03: Nicotine discontinued as mentioned above. DVT prophylaxis, moderate risk: Lovenox 40 mg subcu daily when hemostasis is controlled as per surgeon. Discontinue if platelet count drops less than 50,000 or hemoglobin less than 8 g% Bilateral SCDs Laboratory Results 03/03/23 05:20: WBC 22.0 H, RBC 3.82 L, Hgb 11.3 L, Hct 34.0 L, MCV 89.0, MCH 29.6, MCHC 33.2, RDW Std Deviation 46.5 H, RDW Coeff of Hector 14.4, Plt Count 211, MPV 12.1 H, Immature Gran % (Auto) 1.000 H, Neut % (Auto) 90.4 H, Lymph % (Auto) 4.5 L, [place] % (Auto) 4.0, Eos % (Auto) 0.0, Baso % (Auto) 0.1, Absolute Neuts (auto) 19.9 H, Absolute Lymphs (auto) 0.98, Nucleated RBC % 0 03/03/23 05:20: Sodium 133 L, Potassium 4.2, Chloride 103, Carbon Dioxide 29.0, Anion Gap 1 L, BUN 21 H, Creatinine 1.08, Estim Creat Clear Calc 78.19, Est GFR (MDRD) Af Amer 92, Est GFR (MDRD) Non-Af 76, BUN/Creatinine Ratio 19.4, Glucose 105, Calcium 8.1 L, Phosphorus 3.0, Magnesium 2.0 03/03/23 05:20: Hemoglobin A1c 5.1 Charges/Coding Visit Charges Inpatient E&M: 57155 Subs Hosp L2
[2023-03-03] MEDS: KCl 20MEQ in D5NS 20 MEQ/1,000 ML IV.SOLN. 75 MEQ IV ×2 (10:12→23:29)
[2023-03-03] MEDS: Furosemide 20 MG/2 ML VIAL IV (10:12)
[2023-03-03 11:01] LABS: Hemoglobin A1c 5.1 % (3.8-5.6)
[2023-03-03] MEDS: Phenol/Sodium Phenolate 180ML 5 SPRAY MUCOUS MEM (11:24)
--- NOTE | 2023-03-03 11:55 | CASEMGMT ---
JANETTE BATES Assessment: Face to Face with pt for initial transition planning/care coordination assessment. JANETTE BATES introduced self and role at [facility], pt voices understanding and consents to assessment. Pt is A/O x4 and answers all questions appropriately at this time. Pt sitting up in bed with NG in in no distress. Pt sig other at bedside and pt agreeable to assessment with her present. Care providers, pharmacy, and demographics verified/updated. Admitting Dx: Abd pain PCP:Pt denies, provided with a local healthcare directory pamphlet. Specialists:Pt denies. Preferred Pharmacy: [facility] Retail Insurance: Self Pay Prescription Benefit: no LNOK: Pt has no contacts listed and denies need to add anyone. Living Arrangements: Pt lives with step dad in a mobile home with 4 steps to enter with a rail. Pt reports he is I in ADL's and denies concerns at home. Transportation: Pt drives self and denies concerns with transportation. DME/HHC/SNF: Pt has a cane at home but does not use. Pt denies hx of HHC or SNF stays. Pt states no concerns with going home at time of dc. Pt is up SBA in room. Pt states no further concerns/needs. CM to follow. Advised pt to ask CM if any further question/concerns/needs arise, voices understanding. Pt Goal: Home Plan: Home, will follow for rx cost
[2023-03-03] MEDS: Fluconazole 100 MG in Viaflex Bag 1 BAG 50 MG IV (12:00)
[2023-03-03 13:22] LABS: Mucous, Urine 0 SEEN /hpf (<or=2+); Squamous Epithelial Cells - UA 0 SEEN /hpf (0-5); White Blood Cells 0 SEEN /hpf (0-5)
[2023-03-03 13:23] LABS: Color, Urine Straw (Yellow); Glucose, Dipstick Normal (Normal); Ketone-Dipstick Negative (Negative); Leukocyte Esterase-Dipstick Negative /ul (Negative); Nitrite-Dipstick Negative (Negative); Occult Blood-Urine 25 /ul (Negative); Protein-Dipstick Negative (Negative); Urine Bilirubin Dipstick Negative (Negative); Urine Clarity Clear (Clear); Urine Urobilinogen Normal (Normal); Urine pH 6.5 (5.0 - 8.0)
[2023-03-03 13:29] LABS: Bacteria RARE /hpf (None Seen); Red Blood Cells-Urine 0-5 SEEN /hpf (0-5)
[2023-03-03] MEDS: Ondansetron 4 MG/2 ML Vial IV (13:53)
[2023-03-03 14:00] VITALS: BP 105/71; PULSE 76; RESP 16; TEMP 37.3; O2SAT 95
--- NOTE | 2023-03-03 15:08 | CASEMGMT ---
Social Work SW met with pt and introduced self and role of SW. Pt has no health insurance. Pt states that he is employed and opted out of employer offered health insurance. Pt denies concerns with paying for needed prescriptions. Pt also denies any food or housing insecurities. ENRIQUE provided pt with written information on prescription assistance, [employer], Kaila Singh, [facility] assistance and community action. Pt appreciative of information but denies any needs at this time. Pt does state he will talk to employer about getting on insurance plan. BRYCE Munoz
[2023-03-03 16:00] VITALS: BP 134/79; PULSE 86; RESP 16; TEMP 36.4; O2SAT 97
[2023-03-03 20:25] VITALS: BP 113/70; PULSE 73; RESP 16; TEMP 36.9; O2SAT 98
[2023-03-04] MEDS: HYDROmorphone 0.5 MG/0.5 ML SYRINGE IV ×5 (01:17→21:12)
[2023-03-04 02:20] VITALS: BP 125/82; PULSE 76; RESP 16; TEMP 37.4; O2SAT 96
[2023-03-04 07:22] LABS: Absolute Lymphocyte Count 1.25 X10^3/uL (0.83-4.51); Absolute Neutrophil Count 11.9 X10^3/uL (2.0-7.7); Basophil# 0.02 X10^3/uL; Basophil% 0.1 % (0-1); Eosinophil# 0.08 X10^3/uL; Eosinophils% 0.6 % (0-5); Hematocrit 32.9 % (40-54); Hemoglobin 11.1 g/dL (13.0-16.5); Lymphocyte # 1.25 X10^3/ul (0.83-4.51); Lymphocyte % 8.9 % (19-41); Mean Corp Hgb Conc 33.7 g/dL (32-36); Mean Corpuscular Hgb 30.5 pg (27.0-32.0); Mean Corpuscular Volume 90.4 fL (80-94); Mean Platelet Vol. 11.3 fl (6.2-12.0); Monocyte# 0.65 X10^3/uL; Monocyte% 4.6 % (0-10); NRBC Flagged by Analyzer 0 % (0-5); Neutrophil # 11.93 X10^3/uL (2.7-7.7); Neutrophil % 85.3 % (47-70); Platelet Count 190 K/mm3 (150-450); RBC Distribution Width CV 14.3 % (11.6-14.6); RBC Distribution Width SD 47.8 fl (35.1-43.9); Red Blood Count 3.64 M/mm3 (4.6-6.2)
[2023-03-04 07:37] LABS: Anion Gap 3 (5-15); BUN 22 mg/dL (7-18); BUN/Creat Ratio 20.4 RATIO (10-20); Calcium,Total 8.2 mg/dL (8.5-10.1); Chloride 107 mmol/L (98-107); Creatinine, Serum 1.08 mg/dL (0.70-1.30); EST Glomerular Filtration Rate 76 mL/min (>60); Est Glom Filt Rate - Afr Amer 92 mL/min (>60); Estimated Creatinine Clearance 78.19 ml/min; Glucose 98 mg/dL (74-106); Potassium 3.5 mmol/L (3.5-5.1); Sodium Level 136 mmol/L (136-145)
[2023-03-04 08:20] VITALS: BP 138/81; PULSE 74; RESP 16; TEMP 36.8; O2SAT 96
--- NOTE | 2023-03-04 08:27 | PN.SURG_ITS ---
Subjective Subjective Patient had no new complaints Objective Data Objective Data Vital Signs: Vital Signs Temp Pulse Resp BP Pulse Ox O2 Del Method O2 Flow Rate 99.3 F H 76 16 125/82 H 96 Room Air 2 03/04/23 02:20 03/04/23 02:20 03/04/23 02:20 03/04/23 02:20 03/04/23 02:20 03/04/23 02:20 03/02/23 13:30 Oxygen Flow Rate (L/min) 2 Oxygen Delivery Method Room Air Weight: 167 lb Body Mass Index (BMI) 24.6 Intake & Output: Intake and Output for Last 24 Hours 03/02/23 03/03/23 03/04/23 23:59 23:59 23:59 Intake Total 3965 / 3985 3090.09 / 3090.09 70 / 70 Output Total 1440 / 2255 3609 / 3609 450 / 450 Balance 2525 / 1730 -518.91 / -518.91 -380 / -380 Lab / Micro Data Result Diagrams: 03/04/23 07:15 03/04/23 07:15 Labs: Laboratory Results - last 24 hr 03/03/23 05:20: Hemoglobin A1c 5.1 03/03/23 12:25: Urine Color Straw, Urine Clarity Clear, Urine pH 6.5, Ur Specific [place] 1.010, Urine Protein Negative, Urine Glucose (UA) Normal, Urine Ketones Negative, Urine Occult Blood 25 H, Urine Nitrite Negative, Urine Bilirubin Negative, Urine Urobilinogen Normal, Ur Leukocyte Esterase Negative, Urine RBC 0-5 SEEN, Urine WBC 0 SEEN, Ur Squamous Epith Cells 0 SEEN, Urine Bacteria RARE, Urine Mucus 0 SEEN 03/04/23 07:15: WBC 14.0 H, RBC 3.64 L, Hgb 11.1 L, Hct 32.9 L, MCV 90.4, MCH 30.5, MCHC 33.7, RDW Std Deviation 47.8 H, RDW Coeff of Hector 14.3, Plt Count 190, MPV 11.3, Immature Gran % (Auto) 0.500, Neut % (Auto) 85.3 H, Lymph % (Auto) 8.9 L, [place] % (Auto) 4.6, Eos % (Auto) 0.6, Baso % (Auto) 0.1, Absolute Neuts (auto) 11.9 H, Absolute Lymphs (auto) 1.25, Nucleated RBC % 0 03/04/23 07:15: Sodium 136, Potassium 3.5, Chloride 107, Carbon Dioxide 26.0, Anion Gap 3 L, BUN 22 H, Creatinine 1.08, Estim Creat Clear Calc 78.19, Est GFR (MDRD) Af Amer 92, Est GFR (MDRD) Non-Af 76, BUN/Creatinine Ratio 20.4 H, Glucose 98, Calcium 8.2 L Physical Exam Const oriented x3 Resp normal respiratory effort Cardio regular rate and regular rhythm GI soft to palpation and non-tender Assessment & Plan Assessment/Plan (1) Perforated peptic ulcer: PLAN: Patient is doing well overall. His NG tube is having bilious output. He does not complain of any increased pain and his vitals were stable. White count is returning to normal. Continue antibiotics. I will remove NG and start clears tomorrow. Erasto Allen MD Pager: [facility] [address] [place] [address], [address] [place] [address] Office:
--- NOTE | 2023-03-04 10:01 | PCM.PN.HOSP ---
Reason for Visit Reason for Visit: Diagnoses Duodenal ulcer, unspecified as acute or chronic, without hemorrhage or perforation (03/02/23) Chronic or unspecified peptic ulcer, site unspecified, with perforation (03/02/23) Disease of intestine, unspecified (03/02/23) Peritonitis, unspecified (03/02/23) Other specified disorders of peritoneum (03/02/23) Acute kidney failure, unspecified (03/02/23) Other ascites (03/02/23) Subjective Subjective Follow-up for duodenal ulcer. Right abdominal pain is better. No fever. Objective Data Objective Data Vital Signs: Vital Signs Temp Pulse Resp BP Pulse Ox O2 Del Method O2 Flow Rate 98.3 F 74 16 138/81 H 96 Room Air 2 03/04/23 08:20 03/04/23 08:20 03/04/23 08:20 03/04/23 08:20 03/04/23 08:20 03/04/23 08:20 03/02/23 13:30 Oxygen Flow Rate (L/min) 2 Oxygen Delivery Method Room Air Weight: 167 lb Body Mass Index (BMI) 24.6 Intake & Output: Intake and Output for Last 24 Hours 03/02/23 03/03/23 03/04/23 23:59 23:59 23:59 Intake Total 3965 / 3985 3090.09 / 3090.09 120 / 120 Output Total 1440 / 2255 3609 / 3609 450 / 450 Balance 2525 / 1730 -518.91 / -518.91 -330 / -330 Lab / Micro Data Result Diagrams: 03/04/23 07:15 03/04/23 07:15 Labs: Laboratory Results - last 24 hr 03/03/23 05:20: Hemoglobin A1c 5.1 03/03/23 12:25: Urine Color Straw, Urine Clarity Clear, Urine pH 6.5, Ur Specific [place] 1.010, Urine Protein Negative, Urine Glucose (UA) Normal, Urine Ketones Negative, Urine Occult Blood 25 H, Urine Nitrite Negative, Urine Bilirubin Negative, Urine Urobilinogen Normal, Ur Leukocyte Esterase Negative, Urine RBC 0-5 SEEN, Urine WBC 0 SEEN, Ur Squamous Epith Cells 0 SEEN, Urine Bacteria RARE, Urine Mucus 0 SEEN 03/04/23 07:15: WBC 14.0 H, RBC 3.64 L, Hgb 11.1 L, Hct 32.9 L, MCV 90.4, MCH 30.5, MCHC 33.7, RDW Std Deviation 47.8 H, RDW Coeff of Hector 14.3, Plt Count 190, MPV 11.3, Immature Gran % (Auto) 0.500, Neut % (Auto) 85.3 H, Lymph % (Auto) 8.9 L, [place] % (Auto) 4.6, Eos % (Auto) 0.6, Baso % (Auto) 0.1, Absolute Neuts (auto) 11.9 H, Absolute Lymphs (auto) 1.25, Nucleated RBC % 0 03/04/23 07:15: Sodium 136, Potassium 3.5, Chloride 107, Carbon Dioxide 26.0, Anion Gap 3 L, BUN 22 H, Creatinine 1.08, Estim Creat Clear Calc 78.19, Est GFR (MDRD) Af Amer 92, Est GFR (MDRD) Non-Af 76, BUN/Creatinine Ratio 20.4 H, Glucose 98, Calcium 8.2 L Physical Exam Narrative Right upper quadrant as surgical site pain is better. NG tube small amount of bilious aspirate. Leukocytosis improving General: Awake, alert, oriented x3. Cooperative. HEENT: Atraumatic, PERRLA, EOMI, Normocephalic Oral: NG tube Gastric bilious aspiration. Oral mucosa moist Neck: Supple, No JVD, Negative Carotid Bruits Lungs: Air entry diminished in bilateral lung bases. Mild bibasilar coarse crepitation on deep breathing. No hypoxia Cardiovascular: Sinus regular rhythm, Normal S1, Normal S2, No murmurs Abdomen: Soft, 2 MARIZOL drains. Serosanguineous drain output. Dressing is dry. Postoperative tenderness and guarding. Bowel sounds absent. : Guerrero catheter. Clear urine no dysuria. No renal angle tenderness. No suprapubic tenderness. Extremities: No edema, Capillary Refill Less than 3 Seconds Skin: No rashes, No breakdown Musculoskeletal: No Tenderness to Palpation of Joints or Extremities. Range of motion intact. Muscle strength did not check because of surgery Neurological: Cranial nerves II-XII grossly intact, DTR 2+/4 and Symmetrical, Neuro grossly intact Psych/Mental Status: Flat affect. Assessment & Plan Assessment/Plan (1) Peritonitis: (2) Duodenal ulcer: (3) ANITA (acute kidney injury): PLAN: Plan This is 52-year-old gentleman who is being admitted and general surgery after found to have hollow viscus perforation. 1. Perioperative management of perforated peptic ulcer with generalized peritonitis: [facility] Patient had diagnostic laparoscopy with Bradley patch. Operative findings shows gross contamination of peritoneum with turbid fluid and fibrinous debris particularly around the region of lesser curve. No active leaking of succus. Dense inflammatory hydrant omentum over first part of duodenum suggestive of sealed perforation. Patient is on IV fluid Ringer lactate. NG tube suction, pain control, DVT prophylaxis as per surgeon. Patient has leukocytosis with mainly immature granulocytes 1 neutrophil 92% lymphocyte 2.9%. 03/03: Discussed with the surgeon, Dr. Ling. Leukocytosis improved. Neutrophilia. Total urine output about 1000 mL. NG tube total 210 mL, gastro bilious nature. MARIZOL drain about 10 to 20 mL each. IV fluid changed to D5 NS +20 mEq KCl for nutrition and hydration. Total positive net fluid balance 2.5 L. 20 mg IV Lasix was given. Monitor intake and output. Nicotine patch was discontinued in anticipation recoiling. On IV Protonix 80 mg every 12 hourly, IV Zosyn and fluconazole. Patient was educated and encouraged for incentive spirometry and Pep every 1-2 hours 03/04: Positive fluid balance about 1.7 L. NG tube connected to low intermittent suction. Urine output total 3 L yesterday after Lasix 20 mg IV. On maintenance IV IV fluid as mentioned above. Gastric drainage 560 mL yesterday. Total drainage 125 mill in both MARIZOL drains. Patient was seen by surgeon. Incentive spirometry and Pep pain caress. Leukocytosis is improving. Electrolytes in normal range. BUN 22 creatinine normal. 2. Kidney dysfunction most likely ANITA, prerenal from hypovolemia: Labs reviewed. BUN 28/2.08, BUN/creatinine ratio 13.5. Mild hyponatremia and hypokalemia 131 and 90. K3.6. Bicarb 32 suggestive of volume contraction metabolic alkalosis. IV fluid Ringer lactate ordered. Monitor kidney function, intake and output and electrolytes. If kidney dysfunction does not improve will need renal ultrasound. UA with urine culture is ordered. Patient denies acute dysuria or change in lower urinary tract symptoms. 03/04: Hyponatremia improving. Sodium 133. BUNs/creatinine improved. Creatinine 1.08, ANITA resolved. Continue IV fluid as mentioned above. 03/05: BUN/creatinine improved. BUN elevated 22 but creatinine normal. Continue IV fluid nutritional support. A1c 5.1. Diabetes mellitus ruled out. 3. Mild aspiration during intubation: Chest x-ray mutilative reviewed and does not show any acute infiltrate or consolidation. NG tube in the stomach. Patient is on IV Zosyn and will continue it. We can discontinue vancomycin 4. Chronic smoker: Patient has chronic smoker's cough but has not changed in severity or characteristics. Nicotine ordered. He has already quit alcohol and substance use. 03/03: Nicotine discontinued as mentioned above. DVT prophylaxis, moderate risk: Lovenox 40 mg subcu daily when hemostasis is controlled as per surgeon. Discontinue if platelet count drops less than 50,000 or hemoglobin less than 8 g% Bilateral SCDs Charges/Coding Visit Charges Inpatient E&M: 82229 Subs Hosp L2
[2023-03-04] MEDS: 0.9% Saline Lock 10 ML Syringe IV ×2 (10:39→17:01)
[2023-03-04] MEDS: KCl 20MEQ in D5NS 20 MEQ/1,000 ML IV.SOLN. 75 MEQ IV (14:12)
[2023-03-04 15:00] VITALS: BP 147/79; PULSE 86; RESP 18; TEMP 36.8; O2SAT 97
[2023-03-04 21:10] VITALS: BP 141/84; PULSE 73; RESP 18; TEMP 37.3; O2SAT 97
[2023-03-05] MEDS: HYDROmorphone 0.5 MG/0.5 ML SYRINGE IV ×4 (02:23→18:46)
[2023-03-05] MEDS: 0.9% Saline Lock 10 ML Syringe IV ×4 (02:23→14:45)
[2023-03-05] MEDS: KCl 20MEQ in D5NS 20 MEQ/1,000 ML IV.SOLN. 75 MEQ IV ×2 (02:25→18:40)
[2023-03-05 02:26] VITALS: BP 139/91; PULSE 71; RESP 18; TEMP 36.8; O2SAT 96
[2023-03-05 06:24] LABS: Absolute Lymphocyte Count 1.34 X10^3/uL (0.83-4.51); Absolute Neutrophil Count 8.4 X10^3/uL (2.0-7.7); Basophil# 0.03 X10^3/uL; Basophil% 0.3 % (0-1); Eosinophil# 0.19 X10^3/uL; Eosinophils% 1.8 % (0-5); Hemoglobin 11.1 g/dL (13.0-16.5); Lymphocyte # 1.34 X10^3/ul (0.83-4.51); Lymphocyte % 12.5 % (19-41); Mean Corp Hgb Conc 32.6 g/dL (32-36); Mean Corpuscular Hgb 29.9 pg (27.0-32.0); Mean Corpuscular Volume 91.6 fL (80-94); Monocyte# 0.71 X10^3/uL; Monocyte% 6.6 % (0-10); NRBC Flagged by Analyzer 0 % (0-5); Neutrophil # 8.42 X10^3/uL (2.7-7.7); Neutrophil % 78.4 % (47-70); Platelet Count 224 K/mm3 (150-450); RBC Distribution Width CV 14.3 % (11.6-14.6); RBC Distribution Width SD 48.1 fl (35.1-43.9); Red Blood Count 3.71 M/mm3 (4.6-6.2); White Blood Count 10.7 K/mm3 (4.4-11.0)
[2023-03-05 06:35] LABS: Anion Gap 2 (5-15); BUN 15 mg/dL (7-18); Calcium,Total 8.3 mg/dL (8.5-10.1); Chloride 107 mmol/L (98-107); Creatinine, Serum 0.94 mg/dL (0.70-1.30); EST Glomerular Filtration Rate 89 mL/min (>60); Est Glom Filt Rate - Afr Amer 107 mL/min (>60); Estimated Creatinine Clearance 89.84 ml/min; Glucose 96 mg/dL (74-106); Potassium 3.6 mmol/L (3.5-5.1); Sodium Level 136 mmol/L (136-145)
--- NOTE | 2023-03-05 08:22 | PCM.PN.SRG ---
Subjective Subjective Patient only complaint today is left lateral abdominal pain. He reports that it feels like gurgling. He is not having any right upper quadrant pain he denies any nausea or vomiting. Objective Data Objective Data Vital Signs: Vital Signs Temp Pulse Resp BP Pulse Ox O2 Del Method O2 Flow Rate 98.3 F 71 18 139/91 H 96 Room Air 2 03/05/23 02:26 03/05/23 02:26 03/05/23 02:26 03/05/23 02:26 03/05/23 02:26 03/05/23 02:30 03/02/23 13:30 Oxygen Flow Rate (L/min) 2 Oxygen Delivery Method Room Air Weight: 167 lb Body Mass Index (BMI) 24.6 Intake & Output: Intake and Output for Last 24 Hours 03/03/23 03/04/23 03/05/23 23:59 23:59 23:59 Intake Total 3090.09 / 3090.09 1629.25 / 1629.25 1026.25 / 1026.25 Output Total 3609 / 3609 1740 / 1740 1060 / 1060 Balance -518.91 / -518.91 -110.75 / -110.75 -33.75 / -33.75 Lab / Micro Data Result Diagrams: 03/05/23 05:25 03/05/23 05:25 Labs: Laboratory Results - last 24 hr 03/05/23 05:25: WBC 10.7, RBC 3.71 L, Hgb 11.1 L, Hct 34.0 L, MCV 91.6, MCH 29.9, MCHC 32.6, RDW Std Deviation 48.1 H, RDW Coeff of Hector 14.3, Plt Count 224, MPV 12.0, Immature Gran % (Auto) 0.400, Neut % (Auto) 78.4 H, Lymph % (Auto) 12.5 L, [place] % (Auto) 6.6, Eos % (Auto) 1.8, Baso % (Auto) 0.3, Absolute Neuts (auto) 8.4 H, Absolute Lymphs (auto) 1.34, Nucleated RBC % 0 03/05/23 05:25: Sodium 136, Potassium 3.6, Chloride 107, Carbon Dioxide 27.0, Anion Gap 2 L, BUN 15, Creatinine 0.94, Estim Creat Clear Calc 89.84, Est GFR (MDRD) Af Amer 107, Est GFR (MDRD) Non-Af 89, BUN/Creatinine Ratio 16.0, Glucose 96, Calcium 8.3 L Physical Exam Const oriented x3 Resp normal respiratory effort Cardio regular rate and regular rhythm GI soft to palpation Inspection: Negative for abdominal distention Assessment & Plan Assessment/Plan (1) Perforated peptic ulcer: PLAN: Patient's white count has returned to normal. I will remove the NG tube and start clear liquids. He is complaining of left lateral abdominal pain I am unsure to the etiology. It may be constipation and I will give him a dose of MiraLAX. The patient reports he has not had a bowel movement since Monday. Erasto Allen MD Pager: [facility] [address] [place] [address], [address] [place] [phone] Office:
[2023-03-05 08:30] VITALS: BP 130/70; PULSE 72; RESP 18; TEMP 36.6; O2SAT 98
[2023-03-05] MEDS: Ondansetron 4 MG/2 ML Vial IV (09:32)
--- NOTE | 2023-03-05 09:39 | PN.HOSP_ITS ---
Reason for Visit Reason for Visit: Diagnoses Duodenal ulcer, unspecified as acute or chronic, without hemorrhage or perforat ion (03/02/23) Chronic or unspecified peptic ulcer, site unspecified, with perforation (03/02/23) Disease of intestine, unspecified (03/02/23) Peritonitis, unspecified (03/02/23) Other specified disorders of peritoneum (03/02/23) Acute kidney failure, unspecified (03/02/23) Other ascites (03/02/23) Objective Data Objective Data Vital Signs: Vital Signs Temp Pulse Resp BP Pulse Ox O2 Del Method O2 Flow Rate 98.3 F 71 18 139/91 H 96 Room Air 2 03/05/23 02:26 03/05/23 02:26 03/05/23 02:26 03/05/23 02:26 03/05/23 02:26 03/05/23 02:30 03/02/23 13:30 Oxygen Flow Rate (L/min) 2 Oxygen Delivery Method Room Air Weight: 167 lb Body Mass Index (BMI) 24.6 Intake & Output: Intake and Output for Last 24 Hours 03/03/23 03/04/23 03/05/23 23:59 23:59 23:59 Intake Total 3090.09 / 3090.09 1629.25 / 1629.25 1026.25 / 1026.25 Output Total 3609 / 3609 1740 / 1740 1060 / 1060 Balance -518.91 / -518.91 -110.75 / -110.75 -33.75 / -33.75 Lab / Micro Data Result Diagrams: 03/05/23 05:25 03/05/23 05:25 Labs: Laboratory Results - last 24 hr 03/05/23 05:25: WBC 10.7, RBC 3.71 L, Hgb 11.1 L, Hct 34.0 L, MCV 91.6, MCH 29.9, MCHC 32.6, RDW Std Deviation 48.1 H, RDW Coeff of Hector 14.3, Plt Count 224, MPV 12.0, Immature Gran % (Auto) 0.400, Neut % (Auto) 78.4 H, Lymph % (Auto) 12.5 L, [place] % (Auto) 6.6, Eos % (Auto) 1.8, Baso % (Auto) 0.3, Absolute Neuts (auto) 8.4 H, Absolute Lymphs (auto) 1.34, Nucleated RBC % 0 03/05/23 05:25: Sodium 136, Potassium 3.6, Chloride 107, Carbon Dioxide 27.0, Anion Gap 2 L, BUN 15, Creatinine 0.94, Estim Creat Clear Calc 89.84, Est GFR (MDRD) Af Amer 107, Est GFR (MDRD) Non-Af 89, BUN/Creatinine Ratio 16.0, Glucose 96, Calcium 8.3 L Physical Exam Narrative Patient complained of left lateral abdominal pain to surgeon but did not complain to me. Mild right upper surgical site soreness otherwise no pain. NG tube small amount of bilious aspirate. Leukocytosis resolved. Patient brings up clear phlegm on chest physiotherapy. Doing incentive spirometry. General: Awake, alert, oriented x3. Cooperative. HEENT: Atraumatic, PERRLA, EOMI, Normocephalic Oral: NG tube Gastric bilious aspiration. Oral mucosa moist Neck: Supple, No JVD, Negative Carotid Bruits Lungs: Air entry diminished in bilateral lung bases. Mild bibasilar coarse crepitation on deep breathing. No hypoxia Cardiovascular: Sinus regular rhythm, Normal S1, Normal S2, No murmurs Abdomen: Soft, 2 MARIZOL drains. Serosanguineous drain output. Dressing is dry. Postop tenderness-much improved. Bowel sounds sluggish : Guerrero catheter. Clear urine no dysuria. No renal angle tenderness. No suprapubic tenderness. Extremities: No edema, Capillary Refill Less than 3 Seconds Skin: No rashes, No breakdown Musculoskeletal: No Tenderness to Palpation of Joints or Extremities. Range of motion intact. Muscle strength did not check because of surgery Neurological: Cranial nerves II-XII grossly intact, DTR 2+/4 and Symmetrical, Neuro grossly intact Psych/Mental Status: Flat affect. Assessment & Plan Assessment/Plan (1) Peritonitis: (2) Duodenal ulcer: (3) ANITA (acute kidney injury): PLAN: Plan This is 52-year-old gentleman who is being admitted and general surgery after found to have hollow viscus perforation. 1. Perioperative management of perforated peptic ulcer with generalized peritonitis: [facility] Patient had diagnostic laparoscopy with Bradley patch. Operative findings shows gross contamination of peritoneum with turbid fluid and fibrinous debris particularly around the region of lesser curve. No active leaking of succus. Dense inflammatory hydrant omentum over first part of duodenum suggestive of sealed perforation. Patient is on IV fluid Ringer lactate. NG tube suction, pain control, DVT prophylaxis as per surgeon. Patient has leukocytosis with mainly immature granulocytes 1 neutrophil 92% lymphocyte 2.9%. 03/03: Discussed with the surgeon, Dr. Ling. Leukocytosis improved. Magda trophilia. Total urine output about 1000 mL. NG tube total 210 mL, gastro bilious nature. MARIZOL drain about 10 to 20 mL each. IV fluid changed to D5 NS +20 mEq KCl for nutrition and hydration. Total positive net fluid balance 2.5 L. 20 mg IV Lasix was given. Monitor intake and output. Nicotine patch was discontinued in anticipation recoiling. On IV Protonix 80 mg every 12 hourly, IV Zosyn and fluconazole. Patient was educated and encouraged for incentive spirometry and Pep every 1-2 hours 03/04: Positive fluid balance about 1.7 L. NG tube connected to low intermittent suction. Urine output total 3 L yesterday after Lasix 20 mg IV. On maintenance IV IV fluid as mentioned above. Gastric drainage 560 mL yesterday. Total drainage 125 mill in both MARIZOL drains. Patient was seen by surgeon. Incentive spirometry and Pep pain caress. Leukocytosis is improving. Electrolytes in normal range. BUN 22 creatinine normal. 03/05: Follow-up by surgeon reviewed. Had complained of mild left lateral abdominal pain and MiraLAX ordered. Discussed with nursing staff. Plan for NG tube removal and clear liquid. Urine output 1125 mill yesterday and 500 since 12 AM today. Right and left MARIZOL drain total about 50 mL. We will keep the drain. 2. Kidney dysfunction most likely ANITA, prerenal from hypovolemia: Labs reviewed. BUN 28/2.08, BUN/creatinine ratio 13.5. Mild hyponatremia and hy pokalemia 131 and 90. K3.6. Bicarb 32 suggestive of volume contraction metabolic alkalosis. IV fluid Ringer lactate ordered. Monitor kidney function, intake and output and electrolytes. If kidney dysfunction does not improve will need renal ultrasound. UA with urine culture is ordered. Patient denies acute dysuria or change in lower urinary tract symptoms. 03/04: Hyponatremia improving. Sodium 133. BUNs/creatinine improved. Creatinine 1.08, ANITA resolved. Continue IV fluid as mentioned above. 03/05: BUN/creatinine improved. BUN elevated 22 but creatinine normal. Continue IV fluid nutritional support. A1c 5.1. Diabetes mellitus ruled out. Positive fluid balance 1800 mL. One-time small dose Lasix 20 mg IV ordered. 3. Mild aspiration during intubation: Chest x-ray mutilative reviewed and does not show any acute infiltrate or consolidation. Patient is on IV Zosyn and will continue it. We can discontinue vancomycin 4. Chronic smoker: Patient has chronic smoker's cough but has not changed in severity or characteristics. Nicotine ordered. He has already quit alcohol and substance use. 03/03: Nicotine discontinued as mentioned above. DVT prophylaxis, moderate risk: Lovenox 40 mg subcu daily when hemostasis is controlled as per surgeon. Discontinue if platelet count drops less than 50,000 or hemoglobin less than 8 g% Bilateral SCDs Charges/Coding Visit Charges Inpatient E&M: 68573 Subs Hosp L2
[2023-03-05] MEDS: Polyethylene Glycol 3350 17 GM PACKET PO (09:49)
--- NOTE | 2023-03-05 10:10 | NURSING ---
0930; NG removed without difficutly. Pt tolerated well.
[2023-03-05] MEDS: Furosemide 20 MG/2 ML VIAL IV (11:20)
[2023-03-05 14:30] VITALS: BP 130/76; PULSE 71; RESP 18; TEMP 36.2; O2SAT 98
[2023-03-05 20:46] VITALS: BP 130/76; PULSE 64; RESP 18; TEMP 36.6; O2SAT 98
[2023-03-05] MEDS: MELATONIN 10 MG TABLET PO (20:54)
[2023-03-06 03:20] VITALS: BP 114/96; PULSE 66; RESP 18; TEMP 36.8; O2SAT 96
[2023-03-06] MEDS: HYDROmorphone 0.5 MG/0.5 ML SYRINGE IV ×2 (03:42→09:30)
[2023-03-06] MEDS: 0.9% Saline Lock 10 ML Syringe IV ×2 (03:42→09:30)
[2023-03-06] MEDS: KCl 20MEQ in D5NS 20 MEQ/1,000 ML IV.SOLN. 75 MEQ IV (03:43)
[2023-03-06 05:07] LABS: Absolute Lymphocyte Count 1.48 X10^3/uL (0.83-4.51); Absolute Neutrophil Count 6.1 X10^3/uL (2.0-7.7); Basophil# 0.05 X10^3/uL; Basophil% 0.6 % (0-1); Eosinophil# 0.39 X10^3/uL; Eosinophils% 4.3 % (0-5); Hematocrit 31.4 % (40-54); Hemoglobin 10.5 g/dL (13.0-16.5); Lymphocyte # 1.48 X10^3/ul (0.83-4.51); Lymphocyte % 16.4 % (19-41); Mean Corp Hgb Conc 33.4 g/dL (32-36); Mean Corpuscular Hgb 30.1 pg (27.0-32.0); Mean Platelet Vol. 11.6 fl (6.2-12.0); Monocyte# 0.93 X10^3/uL; Monocyte% 10.3 % (0-10); NRBC Flagged by Analyzer 0 % (0-5); Neutrophil # 6.12 X10^3/uL (2.7-7.7); Neutrophil % 67.8 % (47-70); Platelet Count 222 K/mm3 (150-450); RBC Distribution Width CV 14.1 % (11.6-14.6); RBC Distribution Width SD 45.9 fl (35.1-43.9); Red Blood Count 3.49 M/mm3 (4.6-6.2)
[2023-03-06 05:30] LABS: Anion Gap 5 (5-15); BUN 11 mg/dL (7-18); BUN/Creat Ratio 12.1 RATIO (10-20); Calcium,Total 8.1 mg/dL (8.5-10.1); Chloride 103 mmol/L (98-107); Creatinine, Serum 0.91 mg/dL (0.70-1.30); EST Glomerular Filtration Rate 92 mL/min (>60); Est Glom Filt Rate - Afr Amer 112 mL/min (>60); Glucose 121 mg/dL (74-106); Magnesium 1.8 mg/dL (1.6-2.6); Phosphorus 2.8 mg/dL (2.5-4.9); Potassium 3.3 mmol/L (3.5-5.1); Sodium Level 135 mmol/L (136-145)
[2023-03-06 07:44] VITALS: BP 129/82; PULSE 69; RESP 16; TEMP 36.5; O2SAT 97
--- NOTE | 2023-03-06 10:28 | PN.HOSP_ITS ---
Reason for Visit Reason for Visit: Diagnoses Duodenal ulcer, unspecified as acute or chronic, without hemorrhage or perforat ion (03/02/23) Chronic or unspecified peptic ulcer, site unspecified, with perforation (03/02/23) Disease of intestine, unspecified (03/02/23) Peritonitis, unspecified (03/02/23) Other specified disorders of peritoneum (03/02/23) Acute kidney failure, unspecified (03/02/23) Other ascites (03/02/23) Perioperative follow-up for duodenal ulcer perforation. Subjective Subjective Patient on clear liquid diet. NG tube was removed yesterday. Pain level is better. No fever. Still has 2 MARIZOL drain. Objective Data Objective Data Vital Signs: Vital Signs Temp Pulse Resp BP Pulse Ox O2 Del Method O2 Flow Rate 97.7 F L 69 16 129/82 H 97 Room Air 2 03/06/23 07:44 03/06/23 07:44 03/06/23 07:44 03/06/23 07:44 03/06/23 07:44 03/06/23 07:44 03/02/23 13:30 Oxygen Flow Rate (L/min) 2 Oxygen Delivery Method Room Air Weight: 167 lb Body Mass Index (BMI) 24.6 Intake & Output: Intake and Output for Last 24 Hours 03/04/23 03/05/23 03/06/23 23:59 23:59 23:59 Intake Total 1629.25 / 1629.25 3266.25 / 3266.25 1216.28 / 1216.28 Output Total 1740 / 1740 1360 / 1360 585 / 585 Balance -110.75 / -110.75 1906.25 / 1906.25 631.28 / 631.28 Lab / Micro Data Result Diagrams: 03/06/23 04:45 03/06/23 04:45 Labs: Laboratory Results - last 24 hr 03/06/23 04:45: WBC 9.0, RBC 3.49 L, Hgb 10.5 L, Hct 31.4 L, MCV 90.0, MCH 30.1, MCHC 33.4, RDW Std Deviation 45.9 H, RDW Coeff of Hector 14.1, Plt Count 222, MPV 11.6, Immature Gran % (Auto) 0.600, Neut % (Auto) 67.8, Lymph % (Auto) 16.4 L, [place] % (Auto) 10.3 H, Eos % (Auto) 4.3, Baso % (Auto) 0.6, Absolute Neuts (auto) 6.1, Absolute Lymphs (auto) 1.48, Nucleated RBC % 0 03/06/23 04:45: Sodium 135 L, Potassium 3.3 L, Chloride 103, Carbon Dioxide 27.0, Anion Gap 5, BUN 11, Creatinine 0.91, Estim Creat Clear Calc 92.80, Est GFR (MDRD) Af Amer 112, Est GFR (MDRD) Non-Af 92, BUN/Creatinine Ratio 12.1, Glucose 121 H, Calcium 8.1 L, Phosphorus 2.8, Magnesium 1.8 Micro: Microbiology 03/03/23 12:25 Urine Catheter - Guerrero Urine Culture - Final Culture exhibits no growth. Physical Exam Narrative Patient passing flatus. He feels like he is going to move BM. No fever. Does not complain about abdominal pain but mild soreness. Occasional mild chronic smokers cough but not acute. Patient brings up clear phlegm on chest physiothe rapy. Doing incentive spirometry. Physical exam: General: Awake, alert, oriented x3. Cooperative. HEENT: Atraumatic, PERRLA, EOMI, Normocephalic Oral: Oral mucosa moist. Neck: Supple, No JVD, Negative Carotid Bruits Lungs: Air entry diminished in bilateral lung bases. Occasional right basilar crepitations. No hypoxia or tachypnea. Cardiovascular: Sinus regular rhythm, Normal S1, Normal S2, No murmurs Abdomen: Soft, 2 MARIZOL drains. Serosanguineous drain output. Dressing is dry. Bowel sound normal. : Guerrero catheter. Clear urine no dysuria. No renal angle tenderness. No suprapubic tenderness. Extremities: No edema, Capillary Refill Less than 3 Seconds Skin: No rashes, No breakdown Musculoskeletal: No Tenderness to Palpation of Joints or Extremities. Range of motion intact. Muscle strength did not check because of surgery Neurological: Cranial nerves II-XII grossly intact, DTR 2+/4 and Symmetrical, Neuro grossly intact Psych/Mental Status: Flat affect. Assessment & Plan Assessment/Plan (1) Peritonitis: (2) Duodenal ulcer: (3) ANITA (acute kidney injury): PLAN: Plan This is 52-year-old gentleman who is being admitted and general surgery after found to have hollow viscus perforation. 1. Perioperative management of perforated peptic ulcer with generalized peritonitis: [facility] Patient had diagnostic laparoscopy with Bradley patch. Operative findings shows gross contamination of peritoneum with turbid fluid and fibrinous debris particularly around the region of lesser curve. No active leaking of succus. Dense inflammatory hydrant omentum over first part of duodenum suggestive of sealed perforation. Patient is on IV fluid Ringer lactate. NG tube suction, pain control, DVT prophylaxis as per surgeon. Patient has leukocytosis with mainly immature granulocytes 1 neutrophil 92% lymphocyte 2.9%. 03/03: Discussed with the surgeon, Dr. Ling. Leukocytosis improved. Neutrophilia. Total urine output about 1000 mL. NG tube total 210 mL, gastro bilious nature. MARIZOL drain about 10 to 20 mL each. IV fluid changed to D5 NS +20 mEq KCl for nutrition and hydration. Total positive net fluid balance 2.5 L. 20 mg IV Lasix was given. Monitor intake and output. Nicotine patch was discontinued in anticipation recoiling. On IV Protonix 80 mg every 12 hourly, IV Zosyn and fluconazole. Patient was educated and encouraged for incentive spirometry and Pep every 1-2 hours 03/04: Positive fluid balance about 1.7 L. NG tube connected to low intermittent suction. Urine output total 3 L yesterday after Lasix 20 mg IV. On maintenance IV IV fluid as mentioned above. Gastric drainage 560 mL yesterday. Total drainage 125 mill in both MARIZOL drains. Patient was seen by surgeon. Incentive spirometry and Pep pain caress. Leukocytosis is improving. Electrolytes in normal range. BUN 22 creatinine normal. 03/05: Follow-up by surgeon reviewed. Had complained of mild left lateral abdominal pain and MiraLAX ordered. Discussed with nursing staff. Plan for NG tube removal and clear liquid. Urine output 1125 mill yesterday and 500 since 12 AM today. Right and left MARIZOL drain total about 50 mL. We will keep the drain. 03/05: Patient on clear liquid diet.On IV potassium and magnesium replacement for mild hypokalemia and hypomagnesemia. Optimize K about 4.0 and magnesium 2.0. Patient has good bowel bowel sounds and passing flatus. IV fluid cut down to 50 mill per hour and if calorie requirement is adequately met, can discontinue IV fluid later today or tomorrow AM. Plant Quality Manager follow-up. 2. Kidney dysfunction most likely ANITA, prerenal from hypovolemia: Labs reviewed. BUN 28/2.08, BUN/creatinine ratio 13.5. Mild hyponatremia and hypokalemia 131 and 90. K3.6. Bicarb 32 suggestive of volume contraction met abolic alkalosis. IV fluid Ringer lactate ordered. Monitor kidney function, intake and output and electrolytes. If kidney dysfunction does not improve will need renal ultrasound. UA with urine culture is ordered. Patient denies acute dysuria or change in lower urinary tract symptoms. 03/04: Hyponatremia improving. Sodium 133. BUNs/creatinine improved. Creatinine 1.08, ANITA resolved. Continue IV fluid as mentioned above. 03/05: BUN/creatinine improved. BUN elevated 22 but creatinine normal. Continue IV fluid nutritional support. A1c 5.1. Diabetes mellitus ruled out. Positive fluid balance 1800 mL. One-time small dose Lasix 20 mg IV ordered. 03/06: BUN/creatinine normal. No need to give Lasix for 3. Mild aspiration during intubation: Chest x-ray mutilative reviewed and does not show any acute infiltrate or consolidation. Patient is on IV Zosyn and will continue it. We can discontinue vancomycin 4. Chronic smoker: Patient has chronic smoker's cough but has not changed in severity or characteristics. Nicotine ordered. He has already quit alcohol and substance use. 03/03: Nicotine discontinued as mentioned above. DVT prophylaxis, moderate risk: Lovenox 40 mg subcu daily when hemostasis is controlled as per surgeon. Discontinue if platelet count drops less than 50,000 or hemoglobin less than 8 g% Bilateral SCDs Charges/Coding Visit Charges Inpatient E&M: 64542 Subs Hosp L2
[2023-03-06] MEDS: Potassium Chloride 10mEq/100mL 10 MEQ/100 ML IV.SOLN. 100 MEQ IV BOLUS ×3 (10:41→16:19)
--- NOTE | 2023-03-06 11:06 | NURSING ---
clinical pharmacology both fluconazole and KCL rider compatable.
[2023-03-06] MEDS: Acetaminophen 325 MG Tablet 650 MG PO (11:09)
--- NOTE | 2023-03-06 12:08 | PN.SURG_ITS ---
Subjective Subjective Patient seen and examined during AM rounds. He is found sitting upright in bed playing a game. He denies any significant abdominal pain, but does complain of some discomfort which she suggests is moving along his left abdomen. He has been passing gas and burping both. He denies a strong appetite at this time. Objective Data Objective Data Vital Signs: Vital Signs Temp Pulse Resp BP Pulse Ox O2 Del Method O2 Flow Rate 97.7 F L 69 16 129/82 H 97 Room Air 2 03/06/23 07:44 03/06/23 07:44 03/06/23 07:44 03/06/23 07:44 03/06/23 07:44 03/06/23 07:44 03/02/23 13:30 Oxygen Flow Rate (L/min) 2 Oxygen Delivery Method Room Air Weight: 167 lb Body Mass Index (BMI) 24.6 Intake & Output: Intake and Output for Last 24 Hours 03/04/23 03/05/23 03/06/23 23:59 23:59 23:59 Intake Total 1629.25 / 1629.25 3266.25 / 3266.25 1499.95 / 1499.95 Output Total 1740 / 1740 1360 / 1360 585 / 585 Balance -110.75 / -110.75 1906.25 / 1906.25 914.95 / 914.95 Lab / Micro Data Result Diagrams: 03/06/23 04:45 03/06/23 04:45 Labs: Laboratory Results - last 24 hr 03/06/23 04:45: WBC 9.0, RBC 3.49 L, Hgb 10.5 L, Hct 31.4 L, MCV 90.0, MCH 30.1, MCHC 33.4, RDW Std Deviation 45.9 H, RDW Coeff of Hector 14.1, Plt Count 222, MPV 11.6, Immature Gran % (Auto) 0.600, Neut % (Auto) 67.8, Lymph % (Auto) 16.4 L, [place] % (Auto) 10.3 H, Eos % (Auto) 4.3, Baso % (Auto) 0.6, Absolute Neuts (auto) 6.1, Absolute Lymphs (auto) 1.48, Nucleated RBC % 0 03/06/23 04:45: Sodium 135 L, Potassium 3.3 L, Chloride 103, Carbon Dioxide 27.0, Anion Gap 5, BUN 11, Creatinine 0.91, Estim Creat Clear Calc 92.80, Est G FR (MDRD) Af Amer 112, Est GFR (MDRD) Non-Af 92, BUN/Creatinine Ratio 12.1, Glucose 121 H, Calcium 8.1 L, Phosphorus 2.8, Magnesium 1.8 Micro: Microbiology 03/03/23 12:25 Urine Catheter - Guerrero Urine Culture - Final Culture exhibits no growth. Physical Exam Const oriented x3 and no apparent distress Resp normal respiratory effort Resp Narrative: Vital capacity at 1350 with incentive spirometer GI GI Narrative: Operative dressings are clean and intact. Right MARIZOL with some serosanguineous output. Left MARIZOL with serous output. Abdomen is tender to palpation superficially. It is mildly distended. Assessment & Plan Assessment/Plan (1) Perforated peptic ulcer: PLAN: Patient is hospital day 5, postoperative day 4 from diagnostic laparoscopy with Bradley patch and drain placement. He continues to feel better and reports more consistent signs of return of bowel function with more regular flatus, however he states he has been still burping and complains of persistent bloating. Therefore, I am reluctant to advance his diet until he starts to have bowel movements. Neuro: As needed Dilaudid (dosage halved), hold off any NSAIDs on the account of patient's ulcer, hold off p.o. medications on account of ulcer, as needed acetaminophen Pulm/CV: Incentive spirometry, close monitoring given patient's risk factors for respiratory complication FEN/GI: Daily electrolytes?replace mag and Phos today, patient's creatinine remains normal, continue clear liquid diet with addition of Ensure clears, Protonix 80 mg twice daily, hold off nicotine patch to try to promote perfusion to gastric mucosa and promote healing : Voiding spontaneously Heme/ID: Daily monitoring of CBC, empiric therapy with Zosyn, vancomycin, and Diflucan Endo: No current issues, monitor glucose Proph: SCDs, ambulate as tolerated Dispo: Continue inpatient care Charges/Coding Visit Charges Inpatient E&M: 76051 Subs Hosp L2
[2023-03-06 14:04] VITALS: BP 133/91; PULSE 59; RESP 18; TEMP 36.7; O2SAT 98
[2023-03-06] MEDS: Potassium Chloride 10mEq/100mL 10 MEQ/100 ML IV.SOLN. 50 MEQ IV BOLUS (14:10)
[2023-03-06] MEDS: traMADol 50 MG Tablet PO (16:23)
[2023-03-06] MEDS: Ondansetron 4 MG/2 ML Vial IV (19:50)
[2023-03-06] MEDS: HYDROmorphone 0.5 MG/0.5 ML SYRINGE 0.25 MG IV (19:50)
[2023-03-06 21:00] VITALS: BP 130/83; PULSE 60; RESP 18; TEMP 36.7; O2SAT 97
[2023-03-06] MEDS: KCl 20MEQ in D5NS 20 MEQ/1,000 ML IV.SOLN. 50 MEQ IV (21:25)
[2023-03-06] MEDS: MELATONIN 10 MG TABLET PO (22:17)
[2023-03-07 03:40] VITALS: BP 129/78; PULSE 60; RESP 18; TEMP 36.9; O2SAT 97
[2023-03-07] MEDS: 0.9% Saline Lock 10 ML Syringe IV ×3 (04:51→20:33)
[2023-03-07] MEDS: HYDROmorphone 0.5 MG/0.5 ML SYRINGE 0.25 MG IV ×4 (04:51→20:34)
[2023-03-07 06:42] LABS: Absolute Lymphocyte Count 1.61 X10^3/uL (0.83-4.51); Basophil# 0.09 X10^3/uL; Eosinophil# 0.39 X10^3/uL; Eosinophils% 4.3 % (0-5); Hematocrit 33.7 % (40-54); Hemoglobin 10.9 g/dL (13.0-16.5); Lymphocyte # 1.61 X10^3/ul (0.83-4.51); Lymphocyte % 17.9 % (19-41); Mean Corp Hgb Conc 32.3 g/dL (32-36); Mean Corpuscular Hgb 29.7 pg (27.0-32.0); Mean Corpuscular Volume 91.8 fL (80-94); Mean Platelet Vol. 11.8 fl (6.2-12.0); Monocyte# 0.85 X10^3/uL; Monocyte% 9.5 % (0-10); NRBC Flagged by Analyzer 0 % (0-5); Neutrophil # 5.97 X10^3/uL (2.7-7.7); Neutrophil % 66.4 % (47-70); Platelet Count 274 K/mm3 (150-450); RBC Distribution Width CV 13.7 % (11.6-14.6); RBC Distribution Width SD 46.7 fl (35.1-43.9); Red Blood Count 3.67 M/mm3 (4.6-6.2)
[2023-03-07 07:07] LABS: Anion Gap 2 (5-15); BUN 8 mg/dL (7-18); BUN/Creat Ratio 9.3 RATIO (10-20); Calcium,Total 8.2 mg/dL (8.5-10.1); Chloride 103 mmol/L (98-107); Creatinine, Serum 0.86 mg/dL (0.70-1.30); EST Glomerular Filtration Rate 98 mL/min (>60); Est Glom Filt Rate - Afr Amer 119 mL/min (>60); Estimated Creatinine Clearance 98.19 ml/min; Glucose 98 mg/dL (74-106); Sodium Level 132 mmol/L (136-145)
--- NOTE | 2023-03-07 07:24 | PN.SURG_ITS ---
Subjective Subjective Patient seen and examined during AM rounds. He reports that he is feeling better today after having 2 bowel movements yesterday. States he simply is more comfortable and able to lay flat. He expresses an appetite. He states that the tramadol ordered for him yesterday did not agree with him well as he had agitat ion after taking it. Objective Data Objective Data Vital Signs: Vital Signs Temp Pulse Resp BP Pulse Ox O2 Del Method O2 Flow Rate 98.4 F 60 18 129/78 H 97 Room Air 2 03/07/23 03:40 03/07/23 03:40 03/07/23 03:40 03/07/23 03:40 03/07/23 03:40 03/07/23 03:40 03/02/23 13:30 Oxygen Flow Rate (L/min) 2 Oxygen Delivery Method Room Air Weight: 167 lb Body Mass Index (BMI) 24.6 Intake & Output: Intake and Output for Last 24 Hours 03/05/23 03/06/23 03/07/23 23:59 23:59 23:59 Intake Total 3266.25 / 3266.25 2603.78 / 2603.78 209.25 / 209.25 Output Total 1360 / 1360 1620 / 1620 850 / 850 Balance 1906.25 / 1906.25 983.78 / 983.78 -640.75 / -640.75 Lab / Micro Data Result Diagrams: 03/07/23 06:10 03/07/23 06:10 Labs: Laboratory Results - last 24 hr 03/07/23 06:10: WBC 9.0, RBC 3.67 L, Hgb 10.9 L, Hct 33.7 L, MCV 91.8, MCH 29.7, MCHC 32.3, RDW Std Deviation 46.7 H, RDW Coeff of Hector 13.7, Plt Count 274, MPV 11.8, Immature Gran % (Auto) 0.900, Neut % (Auto) 66.4, Lymph % (Auto) 17.9 L, [place] % (Auto) 9.5, Eos % (Auto) 4.3, Baso % (Auto) 1.0, Absolute Neuts (auto) 6.0, Absolute Lymphs (auto) 1.61, Nucleated RBC % 0 03/07/23 06:10: Sodium 132 L, Potassium 4.0, Chloride 103, Carbon Dioxide 27.0, Anion Gap 2 L, BUN 8, Creatinine 0.86, Estim Creat Clear Calc 98.19, Est GFR (MDRD) Af Amer 119, Est GFR (MDRD) Non-Af 98, BUN/Creatinine Ratio 9.3 L, Glucose 98, Calcium 8.2 L Micro: Microbiology 03/03/23 12:25 Urine Catheter - Guerrero Urine Culture - Final Culture exhibits no growth. Physical Exam Const oriented x3 and no apparent distress Resp normal respiratory effort GI GI Narrative: Nondistended, Steri-Strips remain intact over subxiphoid and supraumbilical port sites. Patient's lateral drain sites are covered with clean gauzes. Patient's left-sided MARIZOL with serous output and right-sided MARIZOL with serosanguineous output (clearing). Patient has mild tenderness with palpation just about the drain sites but insists there is nothing deeper. Assessment & Plan Assessment/Plan (1) Perforated peptic ulcer: PLAN: Patient is hospital day 6, postoperative day 5 from diagnostic laparoscopy with Bradley patch and drain placement. He continues to feel better and reports complete return of bowel function y esterday with 2 bowel movements. Therefore, I we will advance his diet today and plan for removal of one of our 2 drains. Patient does well with this transition, will look to de-escalate empiric antibiotics/antifungal therapy Neuro: Wean as needed Dilaudid (dosage halved), hold off any NSAIDs on the account of patient's ulcer, hold off p.o. medications on account of ulcer, as needed acetaminophen, tramadol Pulm/CV: Incentive spirometry, close monitoring given patient's risk factors for respiratory complication FEN/GI: Daily electrolytes, advance to full liquid diet with addition of Ensure high-protein plus, Protonix 80 mg twice daily, hold off nicotine patch to try to promote perfusion to gastric mucosa and promote healing : Voiding spontaneously Heme/ID: Daily monitoring of CBC, empiric therapy with Zosyn, vancomycin, and Diflucan Endo: No current issues, monitor glucose Proph: SCDs, ambulate as tolerated Dispo: Continue inpatient care, discharge to home anticipated in the next 24 to 36 hours pending patient progress
[2023-03-07 08:30] VITALS: BP 140/85; PULSE 56; RESP 18; TEMP 36.5; O2SAT 100
--- NOTE | 2023-03-07 15:40 | PN.HOSP_ITS ---
Reason for Visit Reason for Visit: Diagnoses Duodenal ulcer, unspecified as acute or chronic, without hemorrhage or perforat ion (03/02/23) Chronic or unspecified peptic ulcer, site unspecified, with perforation (03/02/23) Disease of intestine, unspecified (03/02/23) Peritonitis, unspecified (03/02/23) Other specified disorders of peritoneum (03/02/23) Acute kidney failure, unspecified (03/02/23) Other ascites (03/02/23) Subjective Subjective Patient was seen and examined today, his diet was advanced today by surgery, he remains afebrile today, patient has no complaints of any abdominal discomfort, fever, chills, or shortness of breath. Objective Data Objective Data Vital Signs: Vital Signs Temp Pulse Resp BP Pulse Ox O2 Del Method O2 Flow Rate 97.7 F L 56 L 18 140/85 H 100 Room Air 2 03/07/23 08:30 03/07/23 08:30 03/07/23 08:30 03/07/23 08:30 03/07/23 08:30 03/07/23 08:30 03/02/23 13:30 Oxygen Flow Rate (L/min) 2 Oxygen Delivery Method Room Air Weight: 75.75 kg Body Mass Index (BMI) 24.6 Intake & Output: Intake and Output for Last 24 Hours 03/05/23 03/06/23 03/07/23 23:59 23:59 23:59 Intake Total 3266.25 / 3266.25 2603.78 / 2603.78 459.25 / 459.25 Output Total 1360 / 1360 1620 / 1620 1250 / 1250 Balance 1906.25 / 1906.25 983.78 / 983.78 -790.75 / -790.75 Lab / Micro Data Result Diagrams: 03/07/23 06:10 03/07/23 06:10 Labs: Laboratory Results - last 24 hr 03/07/23 06:10: WBC 9.0, RBC 3.67 L, Hgb 10.9 L, Hct 33.7 L, MCV 91.8, MCH 29.7, MCHC 32.3, RDW Std Deviation 46.7 H, RDW Coeff of Hector 13.7, Plt Count 274, MPV 11.8, Immature Gran % (Auto) 0.900, Neut % (Auto) 66.4, Lymph % (Auto) 17.9 L, [place] % (Auto) 9.5, Eos % (Auto) 4.3, Baso % (Auto) 1.0, Absolute Neuts (auto) 6. 0, Absolute Lymphs (auto) 1.61, Nucleated RBC % 0 03/07/23 06:10: Sodium 132 L, Potassium 4.0, Chloride 103, Carbon Dioxide 27.0, Anion Gap 2 L, BUN 8, Creatinine 0.86, Estim Creat Clear Calc 98.19, Est GFR (MDRD) Af Amer 119, Est GFR (MDRD) Non-Af 98, BUN/Creatinine Ratio 9.3 L, Glucose 98, Calcium 8.2 L Micro: Microbiology 03/03/23 12:25 Urine Catheter - Guerrero Urine Culture - Final Culture exhibits no growth. Physical Exam Const alert, oriented x3, no apparent distress and healthy appearing General Appearance: cooperative, well kempt and well developed Orientation / Consciousness: awake, oriented to person, oriented to place and oriented to time HEENT normocephalic and moist oral mucous membranes Eyes PERRL, EOMs intact bilaterally and conjunctivae normal Neck supple, no JVD, thyroid normal and no carotid bruits General: trachea midline Resp normal respiratory effort, no retractions, no use of accessory muscles and clear to auscultation bilaterally Auscultation: Negative for rales, rhonchi or wheezes Cardio regular rate, regular rhythm, S1 normal heart sound, S2 normal heart sound, no murmurs, no rub and no gallops GI normal to inspection, nondistended, normoactive bowel sounds, soft to palpation and non-distended Extremity no clubbing, cyanosis or edema Skin no rashes or lesions noted General Skin Exam: no breakdown Neuro oriented x3, CN's II-XII intact bilaterally, moves all extremities, no focal motor deficits and no sensory deficits noted Sensorium / Orientation: awake and alert Speech: speech normal Psych affect normal Assessment & Plan Assessment/Plan (1) Perforated peptic ulcer: PLAN: Plan 1. Acute kidney injury-resolved at this time #2 status post perforated duodenal ulcer-surgery has advanced his diet currently #3 peritonitis-patient remains on IV antibiotics at the direction of surgery Total clinical time spent by myself addressing the patient's medical issues, reviewing all of his data, and collaborating with patient's care team: 25 minutes Charges/Coding Visit Charges Inpatient E&M: 25949 Subs Hosp L1
[2023-03-07 15:51] VITALS: BP 133/69; PULSE 58; RESP 16; TEMP 36.6; O2SAT 961
[2023-03-07] MEDS: Acetaminophen 325 MG Tablet 650 MG PO (18:31)
[2023-03-07 20:29] VITALS: BP 143/93; PULSE 68; RESP 18; TEMP 36.6; O2SAT 100
[2023-03-07] MEDS: KCl 20MEQ in D5NS 20 MEQ/1,000 ML IV.SOLN. 25 MEQ IV (20:33)
[2023-03-08 03:00] VITALS: BP 123/86; PULSE 66; RESP 18; TEMP 36.7; O2SAT 98
[2023-03-08] MEDS: HYDROmorphone 0.5 MG/0.5 ML SYRINGE 0.25 MG IV (04:25)
[2023-03-08 08:00] VITALS: BP 124/78; PULSE 57; RESP 16; TEMP 36.6; O2SAT 98
--- NOTE | 2023-03-08 08:24 | PCM.PN.SRG ---
Objective Data Objective Data Vital Signs: Vital Signs Temp Pulse Resp BP Pulse Ox O2 Del Method O2 Flow Rate 97.9 F 57 L 16 124/78 H 98 Room Air 2 03/08/23 08:00 03/08/23 08:00 03/08/23 08:00 03/08/23 08:00 03/08/23 08:00 03/08/23 08:08 03/02/23 13:30 Oxygen Flow Rate (L/min) 2 Oxygen Delivery Method Room Air Weight: 167 lb Body Mass Index (BMI) 24.6 Intake & Output: Intake and Output for Last 24 Hours 03/06/23 03/07/23 03/08/23 23:59 23:59 23:59 Intake Total 2603.78 / 2603.78 1837.58 / 1837.58 50 / 50 Output Total 1620 / 1620 2600 / 2600 1020 / 1020 Balance 983.78 / 983.78 -762.42 / -762.42 -970 / -970 Lab / Micro Data Result Diagrams: 03/07/23 06:10 03/07/23 06:10 Micro: Microbiology 03/03/23 12:25 Urine Catheter - Guerrero Urine Culture - Final Culture exhibits no growth.
[2023-03-08] MEDS: Polyethylene Glycol 3350 17 GM PACKET PO (09:24)
[2023-03-08] MEDS: Pantoprazole Sodium 40 MG Tablet PO (09:24)
[2023-03-08] MEDS: oxyCODONE 5 MG Tablet PO (09:30)
[2023-03-08] MEDS: Acetaminophen 325 MG Tablet 650 MG PO (09:30)
[2023-03-08 14:49] VITALS: BP 118/79; PULSE 58; RESP 16; TEMP 36.5; O2SAT 97
--- NOTE | 2023-03-08 16:04 | DCINST_ITS ---
Discharge Instructions Diet Discharge Diet: - (Soft, bite-size, nonspicy diet) Activity Discharge Activity: May Not Drive (No driving while using narcotic pain medication) May shower in (days): 1 Lifting Restrictions: No lifting greater than 15 pounds for 2 weeks after surgery Dressing / Incision Remove Dressing in: 1 day (For left-sided drain site and additional 1 day for right-sided drain site) Cleanse incision/area with: Soap & Water Additional Dressing/Incision Instructions:: Please keep right-sided dressing dry and intact for an additional 48 hours before discontinuing and then okay to shower without covering Follow Up Care Please Follow Up With: Milton Ling MD When: 1 week Test Results: Test results from this visit will be discussed in further detail at your follow- up appointment, if applicable. Discharge Plan Admission Admit Date/Time: 03/02/23 12:57 Primary Reason for Your Visit: Perforated peptic ulcer Attending Provider: Milton Ling Primary Care Provider: Care Physician,No Primary Consulting Providers: Solomon Quinonez ; Benito Hernández Instructions Forms: Work / School Excuse Discharge Orders/Prescriptions Prescriptions: New pantoprazole 40 mg Tablet,Delayed Release (Dr/Ec) 40 mg PO BID 7 Days Qty: 14 1RF oxycodone 5 mg Tablet 5 mg PO Q6H PRN PRN (Reason: Pain Score 6-10) 3 Days Qty: 7 0RF Referrals / Follow Up: Care Physician,No Primary [Primary Care Provider] - Disposition Disposition (needs filled in before D/C Order can be placed): Home, Self Care
--- NOTE | 2023-03-08 16:14 | PCM.DC.SUM ---
Providers Date of Admission: 03/02/23 Primary Care Physician: Brandi Primary Care Phys Consultations 03/02/23 10:33 Consult: Hospitalist Routine Consulting Provider: Solomon Quinonez Reason for Consult: Medical management EMERGENT Consult: No MD Notified: Yes Date Notified: 03/02/23 Time Notified: 10:33 Method of Notification: Verbal Reason For Visit: PERFORATED PEPTIC ULCER Diagnosis Discharge Diagnosis (1) Perforated peptic ulcer: Status: Acute Code(s): K27.5 - Chronic or unspecified peptic ulcer, site unspecified, with perforation Medications at Discharge Home Medications oxycodone 5 mg tablet 5 mg PO Q6H PRN PRN Pain Score 6-10 3 days #7 tabs 03/08/23 pantoprazole 40 mg tablet,delayed release 40 mg PO BID 1 week #14 tabs 03/08/23 Hospital Course Operations - (Agnostic laparoscopy with drain placement 03/02/2023) Summary of Care Provided Hospital Course: Patient is a 52-year-old male who presented on 03/01/2023 to [facility] ER with complaints of severe epigastric abdominal pain that had become progressively more intense over the preceding [address] of the abdomen and pelvis was obtained after laboratories showed a significant leukocytosis and this CT imaging was concerning for possible perforated peptic ulcer given evidence of peritoneal free fluid and several locules of free air. Patient was emergently evaluated in the emergency department and recommended emergency surgery given peritoneal findings on exam. Upon receiving patient's consent, patient was taken for diagnostic laparoscopy with Bradley patching and drain placement. Postoperatively patient was returned to the hospital bull for ongoing care where he steadily progressed. Nasogastric decompression was maintained for 72 hours postoperatively to try to allow the ulcer to fully seal. Patient was also continued on empiric antibiotics and antifungals as well as high-dose PPI twice daily. Patient's operative drains were also monitored further output. With this regimen, we observed a immediate correction of patient's presenting acute kidney injury and a gradual downtrend of his white blood cell count. Following the 72 hours of nasogastric tube decompression, patient's nasogastric tube was discontinued and he was advanced to a clear liquid diet without event. His operative drains were then asynchronously removed and his diet was further advanced. By today, postoperative day 6, he was reporting minimal abdominal discomfort and tolerating a regular diet. His empiric IV antibiotic and antifungal therapy were discontinued and his PPI was transition to an oral route. Given his symptom improvements, patient requested discharge and I found this to be a very reasonable request after confirming his clinical progress and willingness to continue to requested treatments as an outpatient. I detailed these to include ongoing use of twice daily PPI, avoidance of NSAIDs, avoidance of tobacco use, continue protein supplementation, and follow-up with me in 1 week. Physical Exam Const alert, oriented x3 and no apparent distress General Appearance: cooperative Resp normal respiratory effort GI GI Narrative: Nondistended, Steri-Strips remain intact over 2 port site incisions and drain dressings remain clean dry and intact laterally. Patient denies tenderness with palpation. Weight / BMI Weight Weight: 167 lb Body Mass Index (BMI) 24.6 ABG / Lab / Microbiology Data Result Diagrams: 03/07/23 06:10 03/07/23 06:10 Microbiology: Microbiology 03/03/23 12:25 Urine Catheter - Guerrero Urine Culture - Final Culture exhibits no growth. D/C Instructions Discharge Diet: - (Soft, bite-size, nonspicy diet) May shower in (days): 1 Cleanse incision/area with: Soap & Water Additional Dressing/Incision Instructions: Please keep right-sided dressing dry and intact for an additional 48 hours before discontinuing and then okay to shower without covering Please Follow Up With: Milton Ling MD When: 1 week Meaningful Use Info Meaningful Use Diagnoses (Choose all that apply): None applicable Discharge Plan Admission Admit Date/Time: 03/02/23 12:57 Primary Reason for Your Visit: Perforated peptic ulcer Attending Provider: Milton Ling Primary Care Provider: Care Physician,No Primary Consulting Providers: Solomon uQinonez ; Benito Hernández Instructions Forms: Work / School Excuse Discharge Orders/Prescriptions Prescriptions: New pantoprazole 40 mg Tablet,Delayed Release (Dr/Ec) 40 mg PO BID 7 Days Qty: 14 1RF oxycodone 5 mg Tablet 5 mg PO Q6H PRN PRN (Reason: Pain Score 6-10) 3 Days Qty: 7 0RF Referrals / Follow Up: Care Physician,No Primary [Primary Care Provider] - Disposition Disposition (needs filled in before D/C Order can be placed): Home, Self Care Charges/Coding Visit Charges Inpatient E&M: 89625 Disch Hosp
== END 2023-03-08 16:45 | disposition home or self-care (01) | DRG 326 ==
LOC: ED 09:31 → SDC 09:33 → MS3 13:31
PROVIDERS: Internal Medicine; Surgery; Admitting Provider Surgery; Emergency Provider Emergency Medicine; Referring Provider Emergency Medicine; Visit Provider Surgery
PROC: 0DQ64ZZ Repair Stomach, Percutaneous Endoscopic Approach (ICD-10-PCS; CPT 49320; principal; 2023-03-02 11:45)
DX: K27.5 Chronic or unspecified peptic ulcer, site unspecified, with perforation (principal); K65.0 Generalized (acute) peritonitis; T17.810A Gastric contents in other parts of respiratory tract causing asphyxiation, initial encounter; Y92.234 Operating room of hospital as the place of occurrence of the external cause; K56.7 Ileus, unspecified; E87.3 Alkalosis; E87.1 Hypo-osmolality and hyponatremia; N17.9 Acute kidney failure, unspecified; R18.8 Other ascites; J41.0 Simple chronic bronchitis; E86.1 Hypovolemia; E87.6 Hypokalemia; E83.42 Hypomagnesemia; R73.9 Hyperglycemia, unspecified; K21.9 Gastro-esophageal reflux disease without esophagitis; F17.210 Nicotine dependence, cigarettes, uncomplicated
CPT/HCPCS: 36415; 71045; 74177; 80048; 80053; 81001; 83036; 83690; 83735; 84100; 85025; 87086; 93005; 94668; 96361; 96374; 96375; 97802; 99252; 99285; 99406; J7030; J7050; J7120; Q9967; A4216; G0463; J1940; J2405; J3490